=== PATIENT | male | born 1950 | race American Indian/Alaskan Native ===

== ENCOUNTER 2021-04-29 02:41 | Inpatient (IN) | payer MEDICARE ==
[2021-04-29] MEDS ORDERED: SODIUM CHLORIDE 0.9% 1000 ML 1,000 ML IV ONE (02:50)
--- NOTE | 2021-04-29 02:50 | Emergency Department Report ---
ED General Adult HPI - General Stated complaint: HYPOGLYCEMIA Time Seen by Provider: 04/29/21 02:49 Source: patient Mode of arrival: Stretcher Limitations: Altered Mental Status - History of Present Illness Initial comments: 71-year-old -[place] male brought [facility] from [facility], for hypoglycemia, patient had some altered mental status at the [facility], FSBS showed a glucose of 26, he was given D50, glucose improved to over 200s, but was brought to ED for further evaluation because he remained slightly lethargic. Patient also have been coughing, productive of white sputum, but afebrile. Recent history of COVID-19 dx 3 weeks ago per . Patient also started dialysis one week ago. -: Gradual, hour(s) (1) Location: head Radiation: non-radiation Severity scale (0 -10): 0 Consistency: intermittent Improves with: other (D50) Worsens with: none Associated Symptoms: loss of appetite Treatments Prior to Arrival: other (D50) - Related Data Allergies Allergy/AdvReac Type Severity Reaction Status Date / Time No Known Allergies Allergy Verified 04/29/21 03:06 ED Review of Systems ROS: Stated complaint: HYPOGLYCEMIA Other details as noted in HPI Constitutional: weakness. denies: chills, fever Eyes: denies: eye pain, eye discharge, vision change ENT: denies: ear pain, throat pain Respiratory: cough, shortness of breath. denies: wheezing Cardiovascular: denies: chest pain, palpitations Endocrine: no symptoms reported Gastrointestinal: denies: abdominal pain, nausea, diarrhea Genitourinary: denies: urgency, dysuria Musculoskeletal: denies: back pain, joint swelling, arthralgia Skin: denies: rash, lesions Neurological: weakness. denies: headache, paresthesias Psychiatric: denies: anxiety, depression Hematological/Lymphatic: denies: easy bleeding, easy bruising ED Past Medical Hx - Past Medical History Hx Hypertension: Yes - Surgical History Past Surgical History?: No - Family History Family history: hypertension - Social History Smoking Status: Never Smoker Substance Use Type: None ED Physical Exam - General Limitations: No Limitations General appearance: in no apparent distress, anxious, lethargic - Head Head exam: Present: atraumatic, normocephalic - Eye Eye exam: Present: normal appearance - ENT ENT exam: Present: mucous membranes moist - Neck Neck exam: Present: normal inspection - Respiratory Respiratory exam: Present: wheezes, other (Mild wheezing). Absent: respiratory distress - Cardiovascular Cardiovascular Exam: Present: regular rate, normal rhythm. Absent: systolic murmur, diastolic murmur, rubs, gallop - GI/Abdominal GI/Abdominal exam: Present: soft, normal bowel sounds - Rectal Rectal exam: Present: deferred - exam: Present: other (Does have a Keys) - Extremities Exam Extremities exam: Present: normal inspection - Back Exam Back exam: Present: normal inspection - Neurological Exam Neurological exam: Present: alert, oriented X3 - Psychiatric Psychiatric exam: Present: normal affect, normal mood - Skin Skin exam: Present: warm, dry, intact, normal color. Absent: rash ED Course Vital Signs 04/29/21 04/29/21 04/29/21 03:00 03:06 03:13 Temperature 97.9 F Pulse Rate 82 81 Respiratory 14 15 15 Rate Blood Pressure 102/73 102/73 Blood Pressure 102/73 [Left] O2 Sat by Pulse 95 95 Oximetry 04/29/21 04/29/21 04/29/21 03:15 03:16 03:45 Temperature Pulse Rate 78 78 78 Respiratory 18 19 18 Rate Blood Pressure 102/54 115/55 Blood Pressure 102/54 [Left] O2 Sat by Pulse 100 89 91 Oximetry 04/29/21 04/29/21 04/29/21 04:00 04:01 04:15 Temperature Pulse Rate 77 77 75 Respiratory 20 20 18 Rate Blood Pressure 108/63 100/65 Blood Pressure 108/63 [Left] O2 Sat by Pulse 94 94 94 Oximetry 04/29/21 04:31 Temperature Pulse Rate 75 Respiratory 18 Rate Blood Pressure 111/65 Blood Pressure [Left] O2 Sat by Pulse 97 Oximetry ED Medical Decision Making - Lab Data Result diagrams: 04/29/21 03:08 04/29/21 03:08 Critical care attestation.: If time is entered above; I have spent that time in minutes in the direct care of this critically ill patient, excluding procedure time. ED Disposition Clinical Impression: Hypoglycemia, CKD (chronic kidney disease) stage V requiring chronic dialysis Pneumonia Qualifiers: Pneumonia type: aspiration pneumonia Aspiration pneumonia type: due to gastric secretions Laterality: bilateral Lung location: lower lobe of lung Qualified Code(s): J69.0 - Pneumonitis due to inhalation of food and vomit Is pt being admited?: Yes Does the pt Need Aspirin: No Condition: Stable Instructions: Bacterial Pneumonia (ED)
--- NOTE | 2021-04-29 03:24 | XRay Report ---
CHEST 1 VIEW 04/29/2021 2:57 AM INDICATION / CLINICAL INFORMATION: Altered Mental Status. COMPARISON: Dialysis catheter in satisfactory position. FINDINGS: SUPPORT DEVICES: None. HEART / MEDIASTINUM: Heart size normal. Bilateral hilar enlargement. LUNGS / PLEURA: Mild bibasilar opacity. No pneumothorax. ADDITIONAL FINDINGS: No significant additional findings. IMPRESSION: 1. Bilateral hilar enlargement. Comparison with prior studies would BE helpful. 2. Mild bibasilar opacity. Atelectasis versus developing infiltrate. Signer Name: Daniel Sandoval MD Signed: 04/29/2021 3:19 AM Workstation Name: [id number]
[2021-04-29 03:51] LABS: Partial Thromboplastin Time 33.4 Sec. (24.2-36.6)
[2021-04-29 03:53] LABS: Hematocrit 23.8 % (35.5-45.6); Hemoglobin 7.3 gm/dl (11.8-15.2); Mean Corpuscular HGB Conc 31 % (32-34); Mean Corpuscular Volume 88 fl (84-94); Platelet Count 386 K/mm3 (140-440); Red Cell Distribution Width 15.5 % (13.2-15.2)
[2021-04-29] MEDS ORDERED: cefTRIAXone/NS 2 GM/100 ML 2 GM/100 ML BAG IV ONE (04:06)
[2021-04-29] MEDS ORDERED: AZITHROMYCIN/NS 500 MG/250 ML 500 MG/250 ML BAG IV ONE (04:06)
[2021-04-29 04:08] LABS: Albumin 2.7 g/dL (3.9-5); Calcium 6.8 mg/dL (8.4-10.2)
[2021-04-29 04:47] LABS: Chol/HDL Ratio 4.42 %
[2021-04-29 05:03] LABS: Basophils % (Manual) 0 % (0.0-1.8); Eosinophils % (Manual) 0.5 % (0.0-4.3); Nucleated Red Blood Cells 0.5 % (0.0-0.9); Total Cells Counted 200
[2021-04-29 05:04] LABS: Anisocytosis 1+; Platelet Estimate Consistent w Auto
[2021-04-29] MEDS ORDERED: ACETAMINOPHEN 325 MG TAB PO PRN (05:19)
[2021-04-29] MEDS ORDERED: MORPHINE 2 MG/1 ML INJ IV PRN (05:19)
[2021-04-29] MEDS ORDERED: ONDANSETRON 4 MG/2 ML INJ IV PRN (05:19)
[2021-04-29] MEDS ORDERED: ALBUTEROL 2.5 MG/3 ML NEBU IH PRN (05:19)
[2021-04-29] MEDS ORDERED: HYDROmorphone 1 MG/1 ML INJ IV PRN (05:19)
[2021-04-29] MEDS ORDERED: NITROGLYCERIN 0.4 MG TAB SUBL SL PRN (05:21)
--- NOTE | 2021-04-29 05:28 | History and Physical Report ---
History of Present Illness Date of examination: 04/29/21 Date of admission: 04/29/21 Chief complaint: Hypoglycemia History of present illness: 71-year-old -Armenian male with history of hypertension and end-stage renal disease on hemodialysis was brought to the emergency room because of hypoglycemia, patient had some altered mental status at the [facility] living, FSBS showed a glucose of 26, he was given D50, glucose improved to over 200s, but was brought to ED for further evaluation because he remained slightly lethargic. Patient also have been coughing, productive of white sputum, but afebrile. Recent history of COVID-19 dx 3 weeks ago per . Patient also started dialysis one week ago. In the emergency room patient is found to have WBC of 21.0, hemoglobin of 7.3 and hematocrit 23.8, BUN of 101 creatinine 12.8, troponin of 0.206. Chest x-ray shows bilateral hilar enlargement mild bibasilar opacity. Atelectasis versus developing infiltrate. She was going to admit the patient. Case discussed with php architect will hemodialyzed in the morning. We also put the patient on pneumonia pathway Past History Past Medical History: ESRD, hypertension, renal failure Medications and Allergies Allergies Allergy/AdvReac Type Severity Reaction Status Date / Time No Known Allergies Allergy Verified 04/29/21 03:06 Active Meds: Active Medications Sodium Chloride (Nacl 0.9% 1000 Ml) 1,000 mls @ 125 mls/hr IV ONCE ONE Stop: 04/29/21 10:49 Last Admin: 04/29/21 03:27 Dose: 125 mls/hr Review of Systems Constitutional: weakness, malaise, lethargy Cardiovascular: shortness of breath Respiratory: cough, cough with sputum Exam - Constitutional Vitals: Temp Pulse Resp BP Pulse Ox 97.9 F 78 19 102/66 97 04/29/21 03:06 04/29/21 05:00 04/29/21 05:00 04/29/21 05:00 04/29/21 05:00 General appearance: Present: no acute distress, well-nourished - EENT Eyes: Present: PERRL ENT: hearing intact, clear oral mucosa - Neck Neck: Present: supple, normal ROM - Respiratory Respiratory effort: normal Respiratory: bilateral: diminished - Cardiovascular Heart Sounds: Present: S1 & S2. Absent: rub, click - Extremities Extremities: pulses symmetrical, No edema Peripheral Pulses: within normal limits - Abdominal General gastrointestinal: Present: soft, non-tender, non-distended, normal bowel sounds Male genitourinary: Present: normal - Integumentary Integumentary: Present: clear, warm, dry - Musculoskeletal Musculoskeletal: gait normal, strength equal bilaterally - Psychiatric Psychiatric: appropriate mood/affect, intact judgment & insight - Neurologic Neurologic: CNII-XII intact, moves all extremities HEART Score - HEART Score Troponin: Troponin T 0.206 ng/mL (0.00-0.029) H* 04/29/21 03:08 Results - Labs CBC & Chem 7: 04/29/21 03:08 04/29/21 03:08 Labs: Laboratory Last Values WBC 21.0 K/mm3 (4.5-11.0) H 04/29/21 03:08 RBC 2.70 M/mm3 (3.65-5.03) L 04/29/21 03:08 Hgb 7.3 gm/dl (11.8-15.2) L 04/29/21 03:08 Hct 23.8 % (35.5-45.6) L 04/29/21 03:08 MCV 88 fl (84-94) 04/29/21 03:08 MCH 27 pg (28-32) L 04/29/21 03:08 MCHC 31 % (32-34) L 04/29/21 03:08 RDW 15.5 % (13.2-15.2) H 04/29/21 03:08 Plt Count 386 K/mm3 (140-440) 04/29/21 03:08 Add Manual Diff Complete 04/29/21 03:08 Total Counted 200 04/29/21 03:08 Seg Neuts % (Manual) 87.5 % (40.0-70.0) H 04/29/21 03:08 Band Neutrophils % 0 % 04/29/21 03:08 Lymphocytes % (Manual) 4.0 % (13.4-35.0) L 04/29/21 03:08 Reactive Lymphs % (Man) 0 % 04/29/21 03:08 Monocytes % (Manual) 8.0 % (0.0-7.3) H 04/29/21 03:08 Eosinophils % (Manual) 0.5 % (0.0-4.3) 04/29/21 03:08 Basophils % (Manual) 0 % (0.0-1.8) 04/29/21 03:08 Metamyelocytes % 0 % 04/29/21 03:08 Myelocytes % 0 % 04/29/21 03:08 Promyelocytes % 0 % 04/29/21 03:08 Blast Cells % 0 % 04/29/21 03:08 Nucleated RBC % 0.5 % (0.0-0.9) 04/29/21 03:08 Seg Neutrophils # Man 18.4 K/mm3 (1.8-7.7) H 04/29/21 03:08 Band Neutrophils # 0.0 K/mm3 04/29/21 03:08 Lymphocytes # (Manual) 0.8 K/mm3 (1.2-5.4) L 04/29/21 03:08 Abs React Lymphs (Man) 0.0 K/mm3 04/29/21 03:08 Monocytes # (Manual) 1.7 K/mm3 (0.0-0.8) H 04/29/21 03:08 Eosinophils # (Manual) 0.1 K/mm3 (0.0-0.4) 04/29/21 03:08 Basophils # (Manual) 0.0 K/mm3 (0.0-0.1) 04/29/21 03:08 Metamyelocytes # 0.0 K/mm3 04/29/21 03:08 Myelocytes # 0.0 K/mm3 04/29/21 03:08 Promyelocytes # 0.0 K/mm3 04/29/21 03:08 Blast Cells # 0.0 K/mm3 04/29/21 03:08 WBC Morphology Not Reportable 04/29/21 03:08 Hypersegmented Neuts Not Reportable 04/29/21 03:08 Hyposegmented Neuts Not Reportable 04/29/21 03:08 Hypogranular Neuts Not Reportable 04/29/21 03:08 Smudge Cells Not Reportable 04/29/21 03:08 Toxic Granulation Not Reportable 04/29/21 03:08 Toxic Vacuolation Not Reportable 04/29/21 03:08 Dohle Bodies Not Reportable 04/29/21 03:08 Pelger-Huet Anomaly Not Reportable 04/29/21 03:08 Brooke Rods Not Reportable 04/29/21 03:08 Platelet Estimate Consistent w auto 04/29/21 03:08 Clumped Platelets Not Reportable 04/29/21 03:08 Plt Clumps, EDTA Not Reportable 04/29/21 03:08 Large Platelets Not Reportable 04/29/21 03:08 Giant Platelets Not Reportable 04/29/21 03:08 Platelet Satelliting Not Reportable 04/29/21 03:08 Plt Morphology Comment Not Reportable 04/29/21 03:08 RBC Morphology Not Reportable 04/29/21 03:08 Dimorphic RBCs Not Reportable 04/29/21 03:08 Polychromasia Not Reportable 04/29/21 03:08 Hypochromasia Not Reportable 04/29/21 03:08 Poikilocytosis Not Reportable 04/29/21 03:08 Anisocytosis 1+ 04/29/21 03:08 Microcytosis Not Reportable 04/29/21 03:08 Macrocytosis Not Reportable 04/29/21 03:08 Spherocytes Not Reportable 04/29/21 03:08 Pappenheimer Bodies Not Reportable 04/29/21 03:08 Sickle Cells Not Reportable 04/29/21 03:08 Target Cells Not Reportable 04/29/21 03:08 Tear Drop Cells Not Reportable 04/29/21 03:08 Ovalocytes Not Reportable 04/29/21 03:08 Helmet Cells Not Reportable 04/29/21 03:08 [place] Bodies Not Reportable 04/29/21 03:08 [place] Rings Not Reportable 04/29/21 03:08 [place] Cells Not Reportable 04/29/21 03:08 Bite Cells Not Reportable 04/29/21 03:08 Crenated Cell Not Reportable 04/29/21 03:08 Elliptocytes Not Reportable 04/29/21 03:08 Acanthocytes (Spur) Not Reportable 04/29/21 03:08 Rouleaux Not Reportable 04/29/21 03:08 Hemoglobin C Crystals Not Reportable 04/29/21 03:08 Schistocytes Not Reportable 04/29/21 03:08 Malaria parasites Not Reportable 04/29/21 03:08 Manfred Bodies Not Reportable 04/29/21 03:08 Hem Pathologist Commnt No 04/29/21 03:08 PT 14.3 Sec. (12.2-14.9) 04/29/21 03:08 INR 1.00 (0.87-1.13) 04/29/21 03:08 APTT 33.4 Sec. (24.2-36.6) 04/29/21 03:08 Sodium 136 mmol/L (137-145) L 04/29/21 03:08 Potassium 4.2 mmol/L (3.6-5.0) 04/29/21 03:08 Chloride 94.2 mmol/L (98-107) L 04/29/21 03:08 Carbon Dioxide 19 mmol/L (22-30) L 04/29/21 03:08 Anion Gap 27 mmol/L 04/29/21 03:08 BUN 101 mg/dL (9-20) H 04/29/21 03:08 Creatinine 12.8 mg/dL (0.8-1.3) H 04/29/21 03:08 Estimated GFR 5 ml/min 04/29/21 03:08 BUN/Creatinine Ratio 8 % 04/29/21 03:08 Glucose 200 mg/dL (75-100) H 04/29/21 03:08 POC Glucose 154 mg/dL (70-105) H 04/29/21 02:55 Lactic Acid 1.00 mmol/L (0.7-2.0) 04/29/21 03:08 Calcium 6.8 mg/dL (8.4-10.2) L 04/29/21 03:08 Total Bilirubin 0.20 mg/dL (0.1-1.2) 04/29/21 03:08 AST 26 units/L (5-40) 04/29/21 03:08 ALT 12 units/L (7-56) 04/29/21 03:08 Alkaline Phosphatase 121 units/L (35-129) 04/29/21 03:08 Total Creatine Kinase 101 units/L (55-170) 04/29/21 03:08 Troponin T 0.206 ng/mL (0.00-0.029) H* 04/29/21 03:08 Total Protein 6.3 g/dL (6.3-8.2) 04/29/21 03:08 Albumin 2.7 g/dL (3.9-5) L 04/29/21 03:08 Albumin/Globulin Ratio 0.8 % 04/29/21 03:08 Triglycerides 222 mg/dL (2-149) H 04/29/21 03:08 Cholesterol 186 mg/dL (50-199) 04/29/21 03:08 LDL Cholesterol Direct 82 mg/dL (50-130) 04/29/21 03:08 HDL Cholesterol 42 mg/dL (40-59) 04/29/21 03:08 Cholesterol/HDL Ratio 4.42 % 04/29/21 03:08 - Imaging and Cardiology Chest x-ray: report reviewed Assessment and Plan VTE prophylaxis?: Chemical Plan of care discussed with patient/family: Yes - Patient Problems (1) CKD (chronic kidney disease) stage V requiring chronic dialysis Current Visit: Yes Status: Acute Plan to address problem: Admit the patient to the medical telemetry. Cardiac diet. We consulted nephrology for hemodialysis in the morning. Recheck BMP in the morning (2) Pneumonia Current Visit: Yes Status: Acute Qualifiers: Pneumonia type: aspiration pneumonia Aspiration pneumonia type: due to gastric secretions Laterality: bilateral Lung location: lower lobe of lung Qualified Code(s): J69.0 - Pneumonitis due to inhalation of food and vomit Plan to address problem: Oxygen via nasal cannula 3 L/min. Rocephin 2 g IV daily. Zithromax 500 mg IV daily. Blood culture and sputum culture. Recheck CBC in the morning (3) Elevated troponin Current Visit: Yes Status: Acute Plan to address problem: Aspirin 325 mg p.o. daily. Lipitor 40 mg p.o. daily. Serial cardiac enzymes. Echocardiogram. Consult cardiology if needed (4) Hypertension Current Visit: Yes Status: Acute Plan to address problem: Hydralazine 10 mg IV every 6 hours as needed. We will monitor the blood pressure closely (5) Hypoglycemia Current Visit: Yes Status: Acute Plan to address problem: Put the patient on cardiac diet. We will monitor the blood glucose closely. We put the patient on hypoglycemia protocol (6) DVT prophylaxis Current Visit: Yes Status: Acute Plan to address problem: Heparin 5000 units subcu every 12 hours for DVT prophylaxis. Pepcid 20 mg p.o. twice daily for GI prophylaxis. Patient is a full code
[2021-04-29] MEDS ORDERED: SODIUM CHLORIDE 0.9% 100 ML IV PRN (08:16)
--- NOTE | 2021-04-29 08:16 | Event Note ---
Date: 04/29/21 Patient need urgent HD. Unable to get HD 2/2 AMS.
[2021-04-29] MEDS: IPRATROPIUM/ALBUTEROL SULFATE 3 ML AMPUL.NEB IH SCH ×3 (08:40→20:28)
[2021-04-29] MEDS ORDERED: DEXTROSE 10% *Hypoglycemia IV ONE (09:29)
[2021-04-29] MEDS ORDERED: FAMOTIDINE 20 MG TAB PO SCH (10:00)
[2021-04-29] MEDS: HEPARIN 5,000 UNIT/1 ML VIAL SUB-Q SCH ×2 (10:30→22:00)
[2021-04-29] MEDS: HEPARIN 10,000 UNITS/10 ML VIAL IV PRN (11:41)
[2021-04-29] MEDS: EPOETIN ALFA-EPBX 20,000 UNIT/1 ML VIAL SUB-Q PRN (11:42)
[2021-04-29] MEDS ORDERED: DEXTROSE 10% *Hypoglycemia IV PRN (11:50)
[2021-04-29 12:52] LABS: Hepatitis B Surface Antigen Non-Reactive (Negative); Hepatitis C Virus Antibody Non-Reactive (NonReactive)
--- NOTE | 2021-04-29 14:42 | Event Note ---
Date: 04/29/21 I have seen and examined the patient at the bedside, patient's chart medication list tests and procedures reviewed . 69-year-old -Burkin[place] male patient a care home resident Was admitted this morning through emergency room with hypoglycemia, toxic metabolic encephalopathy patient's blood sugars were 26.. Today patient sugars are little improved, diabetic medications were held, receiving hemodialysis today Patient medical records reviewed continue current management Follow pre sales technical consultant recommendations
--- NOTE | 2021-04-29 14:44 | Consultation ---
History of Present Illness - Reason for Consult Consult date: 04/29/21 end stage renal disease - History of Present Illness The patient is a 71 YO male known to our service with history of DM-2, Hypertension, Anemia, ESRD on HD, Encephalopathy and recent Covid-19 infection who presented to [facility] ED from [facility] 04/29 because of hypoglycemia. Patient was not able to provide any history and there was no family member at the bedside. FSBS at [facility] showed a glucose of 26, he was given D50, glucose improved to over 200s, but was brought to ED for further evaluation because he remained slightly lethargic. Patient had been coughing, productive of white sputum, but afebrile. In the ED patient was found to have WBC of 21, Hemoglobin 7.3, Hematocrit 23.8, BUN of 101 creatinine 12.8, troponin of 0.206. Chest X-ray showed bilateral hilar enlargement mild bibasilar opacity, Atelectasis versus developing infiltrate. Patient was admitted for further evaluation. Nephrology was consulted for further evaluation and treatment of SAMI. Past History Past Medical History: ESRD, hypertension, renal failure Medications and Allergies Allergies Allergy/AdvReac Type Severity Reaction Status Date / Time No Known Allergies Allergy Verified 04/29/21 03:06 Home Medications Medication Instructions Recorded Confirmed Last Taken Type Hydrochlorothiazide 25 mg PO QDAY 04/29/21 04/29/21 Unknown History Iron 325 mg PO QDAY 04/29/21 04/29/21 Unknown History Lasix 80 mg PO BID 04/29/21 04/29/21 Unknown History Lipitor 20 mg PO HS 04/29/21 04/29/21 Unknown History Protonix 40 mg PO QDAY 04/29/21 04/29/21 Unknown History Sotalol 80 mg PO BID 04/29/21 04/29/21 Unknown History amLODIPine 10 mg PO QDAY 04/29/21 04/29/21 Unknown History cloNIDine 0.3 mg PO TID 04/29/21 04/29/21 Unknown History hydrALAZINE [Apresoline TAB] 100 mg PO TID 04/29/21 04/29/21 Unknown History Active Meds: Active Medications Acetaminophen (Acetaminophen 325 Mg Tab) 650 mg PO Q4H PRN PRN Reason: Pain MILD(1-3)/Fever >100.5/GARCIA Albuterol (Albuterol 2.5 Mg/3 Ml Nebu) 2.5 mg IH Q3HRT PRN PRN Reason: Shortness Of Breath Albuterol/Ipratropium (Ipratropium/Albuterol Sulfate 3 Ml Ampul.Neb) 1 ampul IH Q6HRT [facility] Last Admin: 04/29/21 08:40 Dose: Not Given Aspirin (Aspirin Ec 325 Mg Tab) 325 mg PO QDAY [facility] Atorvastatin Calcium (Atorvastatin 40 Mg Tab) 40 mg PO QHS [facility] Azithromycin (Azithromycin 250 Mg Tab) 500 mg PO QDAY [facility]; Protocol Dextrose (Dextrose 10% *Hypoglycemia) 0 ml IV PRN PRN PRN Reason: Hypoglycemia Epoetin Cody-epbx (Epoetin Cody-Epbx 20,000 Unit/1 Ml Vial) 20,000 unit SUB-Q FLORA PRN PRN Reason: hemodialysis Last Admin: 04/29/21 11:42 Dose: 20,000 unit Famotidine (Famotidine 10 Mg Tab) 10 mg PO BID [facility] Heparin Sodium (Porcine) (Heparin 5,000 Unit/1 Ml Vial) 5,000 unit SUB-Q Q12HR [facility] Last Admin: 04/29/21 10:30 Dose: 5,000 unit Heparin Sodium (Porcine) (Heparin 10,000 Units/10 Ml Vial) 3,000 unit IV FLORA PRN PRN Reason: hemodialysis Last Admin: 04/29/21 11:41 Dose: 3,000 unit Hydromorphone HCl (Hydromorphone 1 Mg/1 Ml Inj) 0.5 mg IV Q3H PRN PRN Reason: Pain , Severe (7-10) Ceftriaxone Sodium (Rocephin/Ns 2 Gm/100 Ml) 2 gm in 100 mls @ 200 mls/hr IV Q24H [facility]; Protocol Sodium Chloride (Nacl 0.9%) 100 mls @ 999 mls/hr IV FLORA PRN PRN Reason: Hypotension Morphine Sulfate (Morphine 2 Mg/1 Ml Inj) 2 mg IV Q4H PRN PRN Reason: Pain, Moderate (4-6) Nitroglycerin (Nitroglycerin 0.4 Mg Tab Subl) 0.4 mg SL Q5M PRN PRN Reason: Chest Pain Ondansetron HCl (Ondansetron 4 Mg/2 Ml Inj) 4 mg IV Q8H PRN PRN Reason: Nausea And Vomiting Sodium Chloride (Sodium Chloride 0.9% 10 Ml Flush Syringe) 10 ml IV BID JOSUE Last Admin: 04/29/21 10:30 Dose: 10 ml Sodium Chloride (Sodium Chloride 0.9% 10 Ml Flush Syringe) 10 ml IV PRN PRN PRN Reason: LINE FLUSH Exam - Vital Signs Vital signs: Vital Signs Pulse Resp BP 82 14 102/73 04/29/21 03:00 04/29/21 03:00 04/29/21 03:00 Results - Lab Results 04/30/21 05:45 04/30/21 05:45 Most recent lab results Calcium 6.8 mg/dL (8.4-10.2) L 04/29/21 03:08 Assessment and Plan 1. ESRD: Patient was recently started on HD during the prior admission at [facility]. He was last dialyzed on 04/24 at [facility]. He refused scheduled HD on 04/27 at the rehab center. Admitted with volume overload and metabolic acidosis. Hemodialysis: 04/29. 2. FEN: Metabolic acidosis, HD today, monitor. Volume control, UF with HD as tolerated. Monitor lytes and volume status. 3. Acute hypoxic resp failure, POA: 2/2 volume overload / pulmonary edema / PNA. On VM and NC O2 at the time of evaluation. Monitor. 4. PNA, POA: Abx to cover CAP. Covid-19 test ordered. Follow cultures. 5. DM-2: Admitted with hypoglycemia. Monitor. 6. Normocytic Anemia, POA: Chronic. Epogen. Monitor. 7. Hypertension: Volume control. Continue home BP meds. Monitor BP. Subjective: Patient was seen and examined at the bedside. Examination: General appearance: well-developed, appears stated age, slight resp distress, on VM and NC O2 HEENT: atraumatic, CHRISTIANO Neck: trachea midline Respiratory: rales heard Heart: S1S2, regular, no murmur Abdomen: soft, bowel sounds heard, NT Integumentary: no obvious rash Neurologic: somnolent, able to move extremities Ext: edema Hemodialysis access: R IJ tunnel catheter
[2021-04-29] MEDS: FAMOTIDINE 10 MG TAB PO SCH ×2 (15:55→22:00)
--- NOTE | 2021-04-29 15:55 | Progress Note ---
Assessment and Plan Assessment and plan: Discussed with nephrology Dr. Barrera, patient was severely hypoxemic during dialysis requiring Ventimask. Patient is already receiving nebulizer treatments, work-up is consistent with possible pneumonia on chest x-ray Leukocytosis and low-grade fever. Patient is already on empiric antibiotics Rocephin and Zithromax --ESRD on hemodialysis Current Visit: Yes Status: Acute Nephrology following Hemodialysis per schedule, monitor renal function Avoid nephrotoxin, renal dosing of medications -- Pneumonia community-acquired Current Visit: Yes Status: Acute Oxygen via nasal cannula 3 L/min. Titrate O2 sats to more than 90% Empiric antibiotics Rocephin 2 g IV daily. Zithromax 500 mg IV daily. Blood culture and sputum culture. --Elevated troponin/non-ST elevation [place] type II Current Visit: Yes Status: Acute Aspirin 325 mg p.o. daily. Lipitor 40 mg p.o. daily. Serial cardiac enzymes. Echocardiogram. Consult cardiology if needed --Hypertension Current Visit: Yes Status: Acute Hydralazine 10 mg IV every 6 hours as needed. We will monitor the blood pressure closely --Hypoglycemia Current Visit: Yes Status: Acute D50/D10 to treat hypoglycemia. Hold diabetic medications, closely monitor blood sugars, sliding scale coverage ADA diet and insulin --DVT prophylaxis Current Visit: Yes Status: Acute Heparin 5000 units subcu every 12 hours for DVT prophylaxis. Pepcid 20 mg p.o. twice daily for GI prophylaxis. Patient is a full code Monitor patient and adjust the management as needed Plan of care reviewed with the patient and his nurse Home O2 evaluation prior to discharge Plan of care reviewed with patient and his nurse 04/29; patient received hemodialysis today, during the dialysis time Patient went to hypoxic respiratory failure, placed on Ventimask, currently saturating well History Interval history: I have seen and examined the patient at the bedside this morning Patient's chart and medications reviewed Patient was admitted with worsening shortness of breath and hypoglycemia Blood sugars are reasonable level, scheduled for hemodialysis Hypoglycemic respiratory failure Vital signs noted Hospitalist Physical - Constitutional Vitals: Temp Pulse Resp BP Pulse Ox 100.8 F H 98 H 18 132/67 96 04/29/21 10:50 04/29/21 12:48 04/29/21 12:48 04/29/21 11:15 04/29/21 12:48 General appearance: Present: no acute distress, well-nourished - EENT Eyes: Present: PERRL, EOM intact - Neck Neck: Present: supple, normal ROM - Respiratory Respiratory effort: normal Respiratory: bilateral: diminished, rhonchi, negative: rales, wheezing - Cardiovascular Rhythm: regular Heart Sounds: Present: S1 & S2 - Extremities Extremities: no ischemia, No edema - Abdominal General gastrointestinal: soft, non-tender, non-distended, normal bowel sounds - Integumentary Integumentary: Present: clear, warm - Psychiatric Psychiatric: appropriate mood/affect, cooperative - Neurologic Neurologic: CNII-XII intact, moves all extremities HEART Score - HEART Score Troponin: Troponin T 0.167 ng/mL (0.00-0.029) H* 04/29/21 10:29 Results - Labs CBC & Chem 7: 04/29/21 03:08 04/29/21 10:29 Labs: Laboratory Last Values WBC 21.0 K/mm3 (4.5-11.0) H 04/29/21 03:08 RBC 2.70 M/mm3 (3.65-5.03) L 04/29/21 03:08 Hgb 7.3 gm/dl (11.8-15.2) L 04/29/21 03:08 Hct 23.8 % (35.5-45.6) L 04/29/21 03:08 MCV 88 fl (84-94) 04/29/21 03:08 MCH 27 pg (28-32) L 04/29/21 03:08 MCHC 31 % (32-34) L 04/29/21 03:08 RDW 15.5 % (13.2-15.2) H 04/29/21 03:08 Plt Count 386 K/mm3 (140-440) 04/29/21 03:08 Add Manual Diff Complete 04/29/21 03:08 Total Counted 200 04/29/21 03:08 Seg Neuts % (Manual) 87.5 % (40.0-70.0) H 04/29/21 03:08 Band Neutrophils % 0 % 04/29/21 03:08 Lymphocytes % (Manual) 4.0 % (13.4-35.0) L 04/29/21 03:08 Reactive Lymphs % (Man) 0 % 04/29/21 03:08 Monocytes % (Manual) 8.0 % (0.0-7.3) H 04/29/21 03:08 Eosinophils % (Manual) 0.5 % (0.0-4.3) 04/29/21 03:08 Basophils % (Manual) 0 % (0.0-1.8) 04/29/21 03:08 Metamyelocytes % 0 % 04/29/21 03:08 Myelocytes % 0 % 04/29/21 03:08 Promyelocytes % 0 % 04/29/21 03:08 Blast Cells % 0 % 04/29/21 03:08 Nucleated RBC % 0.5 % (0.0-0.9) 04/29/21 03:08 Seg Neutrophils # Man 18.4 K/mm3 (1.8-7.7) H 04/29/21 03:08 Band Neutrophils # 0.0 K/mm3 04/29/21 03:08 Lymphocytes # (Manual) 0.8 K/mm3 (1.2-5.4) L 04/29/21 03:08 Abs React Lymphs (Man) 0.0 K/mm3 04/29/21 03:08 Monocytes # (Manual) 1.7 K/mm3 (0.0-0.8) H 04/29/21 03:08 Eosinophils # (Manual) 0.1 K/mm3 (0.0-0.4) 04/29/21 03:08 Basophils # (Manual) 0.0 K/mm3 (0.0-0.1) 04/29/21 03:08 Metamyelocytes # 0.0 K/mm3 04/29/21 03:08 Myelocytes # 0.0 K/mm3 04/29/21 03:08 Promyelocytes # 0.0 K/mm3 04/29/21 03:08 Blast Cells # 0.0 K/mm3 04/29/21 03:08 WBC Morphology Not Reportable 04/29/21 03:08 Hypersegmented Neuts Not Reportable 04/29/21 03:08 Hyposegmented Neuts Not Reportable 04/29/21 03:08 Hypogranular Neuts Not Reportable 04/29/21 03:08 Smudge Cells Not Reportable 04/29/21 03:08 Toxic Granulation Not Reportable 04/29/21 03:08 Toxic Vacuolation Not Reportable 04/29/21 03:08 Dohle Bodies Not Reportable 04/29/21 03:08 Pelger-Huet Anomaly Not Reportable 04/29/21 03:08 Brooke Rods Not Reportable 04/29/21 03:08 Platelet Estimate Consistent w auto 04/29/21 03:08 Clumped Platelets Not Reportable 04/29/21 03:08 Plt Clumps, EDTA Not Reportable 04/29/21 03:08 Large Platelets Not Reportable 04/29/21 03:08 Giant Platelets Not Reportable 04/29/21 03:08 Platelet Satelliting Not Reportable 04/29/21 03:08 Plt Morphology Comment Not Reportable 04/29/21 03:08 RBC Morphology Not Reportable 04/29/21 03:08 Dimorphic RBCs Not Reportable 04/29/21 03:08 Polychromasia Not Reportable 04/29/21 03:08 Hypochromasia Not Reportable 04/29/21 03:08 Poikilocytosis Not Reportable 04/29/21 03:08 Anisocytosis 1+ 04/29/21 03:08 Microcytosis Not Reportable 04/29/21 03:08 Macrocytosis Not Reportable 04/29/21 03:08 Spherocytes Not Reportable 04/29/21 03:08 Pappenheimer Bodies Not Reportable 04/29/21 03:08 Sickle Cells Not Reportable 04/29/21 03:08 Target Cells Not Reportable 04/29/21 03:08 Tear Drop Cells Not Reportable 04/29/21 03:08 Ovalocytes Not Reportable 04/29/21 03:08 Helmet Cells Not Reportable 04/29/21 03:08 Henderson-Redmon Bodies Not Reportable 04/29/21 03:08 [place] Rings Not Reportable 04/29/21 03:08 Rina Cells Not Reportable 04/29/21 03:08 Bite Cells Not Reportable 04/29/21 03:08 Crenated Cell Not Reportable 04/29/21 03:08 Elliptocytes Not Reportable 04/29/21 03:08 Acanthocytes (Spur) Not Reportable 04/29/21 03:08 Rouleaux Not Reportable 04/29/21 03:08 Hemoglobin C Crystals Not Reportable 04/29/21 03:08 Schistocytes Not Reportable 04/29/21 03:08 Malaria parasites Not Reportable 04/29/21 03:08 Manfred Bodies Not Reportable 04/29/21 03:08 Hem Pathologist Commnt No 04/29/21 03:08 PT 14.3 Sec. (12.2-14.9) 04/29/21 03:08 INR 1.00 (0.87-1.13) 04/29/21 03:08 APTT 33.4 Sec. (24.2-36.6) 04/29/21 03:08 Sodium 136 mmol/L (137-145) L 04/29/21 03:08 Potassium 4.2 mmol/L (3.6-5.0) 04/29/21 03:08 Chloride 94.2 mmol/L (98-107) L 04/29/21 03:08 Carbon Dioxide 19 mmol/L (22-30) L 04/29/21 03:08 Anion Gap 27 mmol/L 04/29/21 03:08 BUN 101 mg/dL (9-20) H 04/29/21 03:08 Creatinine 12.8 mg/dL (0.8-1.3) H 04/29/21 03:08 Estimated GFR 5 ml/min 04/29/21 03:08 BUN/Creatinine Ratio 8 % 04/29/21 03:08 Glucose 105 mg/dL (75-100) H 04/29/21 10:29 POC Glucose 117 mg/dL (70-105) H 04/29/21 14:26 Lactic Acid 1.00 mmol/L (0.7-2.0) 04/29/21 03:08 Calcium 6.8 mg/dL (8.4-10.2) L 04/29/21 03:08 Total Bilirubin 0.20 mg/dL (0.1-1.2) 04/29/21 03:08 AST 26 units/L (5-40) 04/29/21 03:08 ALT 12 units/L (7-56) 04/29/21 03:08 Alkaline Phosphatase 121 units/L (35-129) 04/29/21 03:08 Total Creatine Kinase 101 units/L (55-170) 04/29/21 03:08 Troponin T 0.167 ng/mL (0.00-0.029) H* 04/29/21 10:29 Total Protein 6.3 g/dL (6.3-8.2) 04/29/21 03:08 Albumin 2.7 g/dL (3.9-5) L 04/29/21 03:08 Albumin/Globulin Ratio 0.8 % 04/29/21 03:08 Triglycerides 222 mg/dL (2-149) H 04/29/21 03:08 Cholesterol 186 mg/dL (50-199) 04/29/21 03:08 LDL Cholesterol Direct 82 mg/dL (50-130) 04/29/21 03:08 HDL Cholesterol 42 mg/dL (40-59) 04/29/21 03:08 Cholesterol/HDL Ratio 4.42 % 04/29/21 03:08 Hepatitis A IgM Ab Non-reactive (NonReactive) 04/29/21 10:29 Hep Bs Antigen Non-reactive (Negative) 04/29/21 10:29 Hep B Core IgM Ab Non-reactive (NonReactive) 04/29/21 10:29 Hepatitis C Antibody Non-reactive (NonReactive) 04/29/21 10:29 Microbiology: Microbiology 04/29/21 03:57 Peripheral/Venous Blood Culture - Preliminary Culture in Progress 04/29/21 03:08 Peripheral/Venous Blood Culture - Preliminary Culture in Progress Keys/IV: Voiding Method Indwelling Catheter Active Medications - Current Medications Current Medications: Generic Name Dose Route Start Last Admin Trade Name Freq PRN Reason Stop Dose Admin Acetaminophen 650 mg 04/29/21 05:19 Acetaminophen 325 Mg Tab PO Q4H PRN Pain MILD(1-3)/Fever >100.5/GARCIA Albuterol 2.5 mg 04/29/21 05:19 Albuterol 2.5 Mg/3 Ml Nebu IH Q3HRT PRN Shortness Of Breath Albuterol/Ipratropium 1 ampul 04/29/21 08:00 04/29/21 08:40 Ipratropium/Albuterol Sulfate 3 Ml Ampul.Neb IH Not Given Q6HRT [facility] Aspirin 325 mg 04/30/21 10:00 Aspirin Ec 325 Mg Tab PO QDAY [facility] Atorvastatin Calcium 40 mg 04/29/21 22:00 Atorvastatin 40 Mg Tab PO QHS [facility] Azithromycin 500 mg 04/30/21 10:00 Azithromycin 250 Mg Tab PO QDAY [facility] Protocol Dextrose 0 ml 04/29/21 11:50 Dextrose 10% *Hypoglycemia IV PRN PRN Hypoglycemia Epoetin Cody-epbx 20,000 unit 04/29/21 08:16 04/29/21 11:42 Epoetin Cody-Epbx 20,000 Unit/1 Ml Vial SUB-Q 20,000 unit FLORA PRN Administration hemodialysis Famotidine 10 mg 04/29/21 10:00 Famotidine 10 Mg Tab PO BID JOSUE Heparin Sodium (Porcine) 5,000 unit 04/29/21 10:00 04/29/21 10:30 Heparin 5,000 Unit/1 Ml Vial SUB-Q 5,000 unit Q12HR JOSUE Administration Heparin Sodium (Porcine) 3,000 unit 04/29/21 08:16 04/29/21 11:41 Heparin 10,000 Units/10 Ml Vial IV 3,000 unit FLORA PRN Administration hemodialysis Hydromorphone HCl 0.5 mg 04/29/21 05:19 Hydromorphone 1 Mg/1 Ml Inj IV Q3H PRN Pain , Severe (7-10) Ceftriaxone Sodium 2 gm in 100 mls @ 200 mls/hr 04/30/21 06:00 Rocephin/Ns 2 Gm/100 Ml IV Q24H [facility] Protocol Sodium Chloride 100 mls @ 999 mls/hr 04/29/21 08:16 Nacl 0.9% IV FLORA PRN Hypotension Calcium Gluconate 2,000 mg/ 120 mls @ 660 mls/hr 04/29/21 16:00 Sodium Chloride IV 04/29/21 16:10 ONCE ONE Morphine Sulfate 2 mg 04/29/21 05:19 Morphine 2 Mg/1 Ml Inj IV Q4H PRN Pain, Moderate (4-6) Nitroglycerin 0.4 mg 04/29/21 05:21 Nitroglycerin 0.4 Mg Tab Subl SL Q5M PRN Chest Pain Ondansetron HCl 4 mg 04/29/21 05:19 Ondansetron 4 Mg/2 Ml Inj IV Q8H PRN Nausea And Vomiting Sodium Chloride 10 ml 04/29/21 10:00 04/29/21 10:30 Sodium Chloride 0.9% 10 Ml Flush Syringe IV 10 ml BID JOSUE Administration Sodium Chloride 10 ml 04/29/21 05:19 Sodium Chloride 0.9% 10 Ml Flush Syringe IV PRN PRN LINE FLUSH
[2021-04-29] MEDS ORDERED: CALCIUM GLUCONATE 2,000 MG in SODIUM CHLORIDE 0.9% 100 ML IV ONE (16:00)
[2021-04-29 17:22] LABS: ABG Base Excess -0.2 mmol/L (-2.0-3.0); ABG HCO3 23.5 mmol/L (20.0-26.0); ABG Methemoglobin 0.5 % (0.0-1.5); ABG PH 7.458 pH Units (7.350-7.450); ABG PO2 69.5 mm Hg (80.0-90.0)
[2021-04-29] MEDS ORDERED: LIPITOR 10 MG PO SCH (22:00)
[2021-04-30] MEDS: IPRATROPIUM/ALBUTEROL SULFATE 3 ML AMPUL.NEB IH SCH ×3 (01:59→15:50)
[2021-04-30] MEDS: cefTRIAXone/NS 2 GM/100 ML 2 GM/100 ML BAG IV SCH (05:49)
[2021-04-30 06:27] LABS: Hematocrit 21.1 % (35.5-45.6); Hemoglobin 6.6 gm/dl (11.8-15.2); Mean Corpuscular HGB Conc 31 % (32-34); Mean Corpuscular Volume 88 fl (84-94); Platelet Count 358 K/mm3 (140-440); Red Cell Distribution Width 16.5 % (13.2-15.2)
[2021-04-30 06:43] LABS: Calcium 7.2 mg/dL (8.4-10.2)
[2021-04-30 07:57] LABS: Anisocytosis 1+; Large Platelets Few; Platelet Estimate Consistent w Auto; Total Cells Counted 100; Toxic Granulation 1+
[2021-04-30] MEDS: HEPARIN 5,000 UNIT/1 ML VIAL SUB-Q SCH ×2 (09:57→21:52)
[2021-04-30] MEDS: ASPIRIN EC 325 MG TAB PO SCH (09:57)
[2021-04-30] MEDS: FAMOTIDINE 10 MG TAB PO SCH ×2 (09:57→21:51)
[2021-04-30] MEDS: AZITHROMYCIN 250 MG TAB PO SCH (09:57)
--- NOTE | 2021-04-30 10:45 | Electrocardiograph Report ---
[facility] Test Date: 2021-04-29 Test Time: 04:51:38 Pat Name: JACINTO LAYOTN Department: Room: A472 Gender: M Half Section Ironer: VALENTINO : 1950 Requested By: TIFFANY ALVARADO Order Number: [id number] Reading MD: Akhil Baez Measurements Intervals [place] Rate: 79 P: 63 ID: [id number] QRS: -71 QRSD: 165 T: 89 QT: 498 QTc: 571 Interpretive Statements Sinus rhythm RBBB and LAFB Probable left ventricular hypertrophy No previous ECG available for comparison Electronically Signed On 04-30-2021 10:45:12 EDT by Akhil Baez
[2021-04-30] MEDS ORDERED: SODIUM CHLORIDE 0.9% 500 ML 500 ML IV ONE (11:43)
--- NOTE | 2021-04-30 11:43 | Progress Note ---
Assessment and Plan Assessment and plan: Sepsis due to community-acquired pneumonia: Current Visit: Yes Status: Acute Leukocytosis, fever, tachycardia, infiltrate on chest x-ray Follow blood cultures, continue empiric Rocephin and Zithromax Oxygen titrate O2 sats to more than 90% Blood pressures in the lower range; If no improvement, may consider transfer to ICU/IMCU for close observation To start pressors as needed Discussed with nephrology Dr. Barrera, patient was severely hypoxemic during dialysis requiring Ventimask. Patient is already receiving nebulizer treatments, work-up is consistent with possible pneumonia on chest x-ray Leukocytosis and low-grade fever. Patient is already on empiric antibiotics Rocephin and Zithromax --ESRD on hemodialysis Current Visit: Yes Status: Chronic Nephrology following Hemodialysis per schedule, monitor renal function Avoid nephrotoxin, renal dosing of medications --Anemia: Hemoglobin 6.6 Type and screen, transfuse 1 unit of PRBC at that day Hemodialysis tomorrow Closely monitor H&H and transfuse additional PRBC as needed - Pneumonia community-acquired Current Visit: Yes Status: Acute Oxygen via nasal cannula 3 L/min. Titrate O2 sats to more than 90% Empiric antibiotics Rocephin 2 g IV daily. Zithromax 500 mg IV daily. Blood culture and sputum culture. --Elevated troponin/non-ST elevation VT type II Current Visit: Yes Status: Acute Aspirin 325 mg p.o. daily. Lipitor 40 mg p.o. daily. Serial cardiac enzymes. Echocardiogram. Consult cardiology if needed --Hypertension Current Visit: Yes Status: Acute Hydralazine 10 mg IV every 6 hours as needed. We will monitor the blood pressure closely --Hypoglycemia Current Visit: Yes Status: Acute D50/D10 to treat hypoglycemia. Hold diabetic medications, closely monitor blood sugars, sliding scale coverage ADA diet and insulin --DVT prophylaxis--advance care planning Current Visit: Yes Status: Acute Heparin 5000 units subcu every 12 hours for DVT prophylaxis. Pepcid 20 mg p.o. twice daily for GI prophylaxis. --Advance care planning: +30 minutes I called patient's Ms. Deidre Daniel act [phone] and discussed in detail, patient's condition, tests and reports, consultants recommendation, , poor prognosis and advanced directives and goals of treatment, We also inquired the advanced directives, Ms. Silva informed that patient is a full CODE STATUS all needs to be done, to keep him alive, Full code at this point Patient is a full code Monitor patient and adjust the management as needed Plan of care reviewed with the patient and his nurse Home O2 evaluation prior to discharge Plan of care reviewed with patient and his nurse 04/29; patient received hemodialysis today, during the dialysis time Patient went to hypoxic respiratory failure, placed on Ventimask, currently saturating well 04/30; anemia, hemoglobin 6.6, type and cross, transfuse 1. Unit PRBC as needed Sepsis due to community-acquired pneumonia, on empiric Zithromax and Rocephin Follow cultures. Discussed with supervisor insulation Dr. Barrera. History Interval history: I seen and examined the patient at the bedside, patient's chart and medications reviewed Patient's hemoglobin in the lower range 6.6, recommend 1 unit PRBC transfusion during dialysis tomorrow. No external evidence of bleeding Patient feels better patient's is at the bedside Patient is confused at times Vital signs reviewed Hospitalist Physical - Constitutional Vitals: Temp Pulse Resp BP Pulse Ox 98.5 F 98 H 18 105/54 95 04/30/21 07:44 04/30/21 07:44 04/30/21 07:44 04/30/21 07:44 04/30/21 07:44 General appearance: Present: no acute distress, well-nourished - EENT Eyes: Present: PERRL, scleral icterus, miosis - Neck Neck: Present: supple, normal ROM - Respiratory Respiratory effort: normal Respiratory: bilateral: diminished, rales, negative: rhonchi, wheezing - Cardiovascular Rhythm: regular Heart Sounds: Present: S1 & S2 - Extremities Extremities: no ischemia, No edema - Abdominal General gastrointestinal: soft, non-tender, non-distended, normal bowel sounds - Integumentary Integumentary: Present: clear, warm - Psychiatric Psychiatric: appropriate mood/affect, cooperative - Neurologic Neurologic: CNII-XII intact, moves all extremities HEART Score - HEART Score Troponin: Troponin T 0.167 ng/mL (0.00-0.029) H* 04/29/21 10:29 Results - Labs CBC & Chem 7: 04/30/21 05:45 04/30/21 05:45 Labs: Laboratory Last Values WBC 16.7 K/mm3 (4.5-11.0) H 04/30/21 05:45 RBC 2.40 M/mm3 (3.65-5.03) L 04/30/21 05:45 Hgb 6.6 gm/dl (11.8-15.2) L 04/30/21 05:45 Hct 21.1 % (35.5-45.6) L 04/30/21 05:45 MCV 88 fl (84-94) 04/30/21 05:45 MCH 27 pg (28-32) L 04/30/21 05:45 MCHC 31 % (32-34) L 04/30/21 05:45 RDW 16.5 % (13.2-15.2) H 04/30/21 05:45 Plt Count 358 K/mm3 (140-440) 04/30/21 05:45 Hood % (Auto) Back Feeder Plywood Layup Line 04/30/21 05:45 Add Manual Diff Complete 04/30/21 05:45 Total Counted 100 04/30/21 05:45 Seg Neuts % (Manual) 73.0 % (40.0-70.0) H 04/30/21 05:45 Band Neutrophils % 0 % 04/30/21 05:45 Lymphocytes % (Manual) 8.0 % (13.4-35.0) L 04/30/21 05:45 Reactive Lymphs % (Man) 0 % 04/30/21 05:45 Monocytes % (Manual) 16.0 % (0.0-7.3) H 04/30/21 05:45 Eosinophils % (Manual) 1.0 % (0.0-4.3) 04/30/21 05:45 Basophils % (Manual) 1.0 % (0.0-1.8) 04/30/21 05:45 Metamyelocytes % 1.0 % 04/30/21 05:45 Myelocytes % 0 % 04/30/21 05:45 Promyelocytes % 0 % 04/30/21 05:45 Blast Cells % 0 % 04/30/21 05:45 Nucleated RBC % 2.0 % (0.0-0.9) H 04/30/21 05:45 Seg Neutrophils # Man 12.2 K/mm3 (1.8-7.7) H 04/30/21 05:45 Band Neutrophils # 0.0 K/mm3 04/30/21 05:45 Lymphocytes # (Manual) 1.3 K/mm3 (1.2-5.4) 04/30/21 05:45 Abs React Lymphs (Man) 0.0 K/mm3 04/30/21 05:45 Monocytes # (Manual) 2.7 K/mm3 (0.0-0.8) H 04/30/21 05:45 Eosinophils # (Manual) 0.2 K/mm3 (0.0-0.4) 04/30/21 05:45 Basophils # (Manual) 0.2 K/mm3 (0.0-0.1) H 04/30/21 05:45 Metamyelocytes # 0.2 K/mm3 04/30/21 05:45 Myelocytes # 0.0 K/mm3 04/30/21 05:45 Promyelocytes # 0.0 K/mm3 04/30/21 05:45 Blast Cells # 0.0 K/mm3 04/30/21 05:45 WBC Morphology Not Reportable 04/30/21 05:45 Hypersegmented Neuts Not Reportable 04/30/21 05:45 Hyposegmented Neuts Not Reportable 04/30/21 05:45 Hypogranular Neuts Not Reportable 04/30/21 05:45 Smudge Cells Not Reportable 04/30/21 05:45 Toxic Granulation 1+ 04/30/21 05:45 Toxic Vacuolation Not Reportable 04/30/21 05:45 Dohle Bodies Not Reportable 04/30/21 05:45 Pelger-Huet Anomaly Not Reportable 04/30/21 05:45 Brooke Rods Not Reportable 04/30/21 05:45 Platelet Estimate Consistent w auto 04/30/21 05:45 Clumped Platelets Not Reportable 04/30/21 05:45 Plt Clumps, EDTA Not Reportable 04/30/21 05:45 Large Platelets Few 04/30/21 05:45 Giant Platelets Not Reportable 04/30/21 05:45 Platelet Satelliting Not Reportable 04/30/21 05:45 Plt Morphology Comment Not Reportable 04/30/21 05:45 RBC Morphology Not Reportable 04/30/21 05:45 Dimorphic RBCs Not Reportable 04/30/21 05:45 Polychromasia Not Reportable 04/30/21 05:45 Hypochromasia Not Reportable 04/30/21 05:45 Poikilocytosis Not Reportable 04/30/21 05:45 Anisocytosis 1+ 04/30/21 05:45 Microcytosis Not Reportable 04/30/21 05:45 Macrocytosis Not Reportable 04/30/21 05:45 Spherocytes Not Reportable 04/30/21 05:45 Pappenheimer Bodies Not Reportable 04/30/21 05:45 Sickle Cells Not Reportable 04/30/21 05:45 Target Cells Not Reportable 04/30/21 05:45 Tear Drop Cells Not Reportable 04/30/21 05:45 Ovalocytes Not Reportable 04/30/21 05:45 Helmet Cells Not Reportable 04/30/21 05:45 [place]-Centrahoma Bodies Not Reportable 04/30/21 05:45 [place] Rings Not Reportable 04/30/21 05:45 [place] Cells Not Reportable 04/30/21 05:45 Bite Cells Not Reportable 04/30/21 05:45 Crenated Cell Not Reportable 04/30/21 05:45 Elliptocytes Not Reportable 04/30/21 05:45 Acanthocytes (Spur) Not Reportable 04/30/21 05:45 Rouleaux Not Reportable 04/30/21 05:45 Hemoglobin C Crystals Not Reportable 04/30/21 05:45 Schistocytes Not Reportable 04/30/21 05:45 Malaria parasites Not Reportable 04/30/21 05:45 Manfred Bodies Not Reportable 04/30/21 05:45 Hem Pathologist Commnt No 04/30/21 05:45 PT 14.3 Sec. (12.2-14.9) 04/29/21 03:08 INR 1.00 (0.87-1.13) 04/29/21 03:08 APTT 33.4 Sec. (24.2-36.6) 04/29/21 03:08 ABG pH 7.458 pH Units (7.350-7.450) H 04/29/21 17:05 ABG pCO2 34.0 mm Hg 04/29/21 17:05 ABG pO2 69.5 mm Hg (80.0-90.0) L 04/29/21 17:05 ABG HCO3 23.5 mmol/L (20.0-26.0) 04/29/21 17:05 ABG O2 Saturation 97.0 % (95.0-99.0) 04/29/21 17:05 ABG O2 Content 10.0 (0.0-44) 04/29/21 17:05 ABG Base Excess -0.2 mmol/L (-2.0-3.0) 04/29/21 17:05 ABG Hemoglobin 7.4 gm/dl (14.0-18.0) L 04/29/21 17:05 ABG Carboxyhemoglobin 1.5 % (0.0-5.0) 04/29/21 17:05 ABG Methemoglobin 0.5 % (0.0-1.5) 04/29/21 17:05 Oxyhemoglobin 95.1 % (95.0-99.0) 04/29/21 17:05 FiO2 21 % 04/29/21 17:05 Sodium 139 mmol/L (137-145) 04/30/21 05:45 Potassium 4.5 mmol/L (3.6-5.0) 04/30/21 05:45 Chloride 99.3 mmol/L (98-107) 04/30/21 05:45 Carbon Dioxide 22 mmol/L (22-30) 04/30/21 05:45 Anion Gap 22 mmol/L 04/30/21 05:45 BUN 54 mg/dL (9-20) H 04/30/21 05:45 Creatinine 8.8 mg/dL (0.8-1.3) H 04/30/21 05:45 Estimated GFR 7 ml/min 04/30/21 05:45 BUN/Creatinine Ratio 6 % 04/30/21 05:45 Glucose 80 mg/dL (75-100) 04/30/21 05:45 POC Glucose 72 mg/dL (70-105) 04/30/21 07:45 Lactic Acid 1.00 mmol/L (0.7-2.0) 04/29/21 03:08 Calcium 7.2 mg/dL (8.4-10.2) L 04/30/21 05:45 Total Bilirubin 0.20 mg/dL (0.1-1.2) 04/29/21 03:08 AST 26 units/L (5-40) 04/29/21 03:08 ALT 12 units/L (7-56) 04/29/21 03:08 Alkaline Phosphatase 121 units/L (35-129) 04/29/21 03:08 Total Creatine Kinase 101 units/L (55-170) 04/29/21 03:08 Troponin T 0.167 ng/mL (0.00-0.029) H* 04/29/21 10:29 Total Protein 6.3 g/dL (6.3-8.2) 04/29/21 03:08 Albumin 2.7 g/dL (3.9-5) L 04/29/21 03:08 Albumin/Globulin Ratio 0.8 % 04/29/21 03:08 Triglycerides 222 mg/dL (2-149) H 04/29/21 03:08 Cholesterol 186 mg/dL (50-199) 04/29/21 03:08 LDL Cholesterol Direct 82 mg/dL (50-130) 04/29/21 03:08 HDL Cholesterol 42 mg/dL (40-59) 04/29/21 03:08 Cholesterol/HDL Ratio 4.42 % 04/29/21 03:08 Hepatitis A IgM Ab Non-reactive (NonReactive) 04/29/21 10:29 Hep Bs Antigen Non-reactive (Negative) 04/29/21 10:29 Hep B Core IgM Ab Non-reactive (NonReactive) 04/29/21 10:29 Hepatitis C Antibody Non-reactive (NonReactive) 04/29/21 10:29 Microbiology: Microbiology 04/29/21 03:57 Peripheral/Venous Blood Culture - Preliminary Culture in Progress 04/29/21 03:08 Peripheral/Venous Blood Culture - Preliminary Culture in Progress Keys/IV: Voiding Method Indwelling Catheter Active Medications - Current Medications Current Medications: Generic Name Dose Route Start Last Admin Trade Name Freq PRN Reason Stop Dose Admin Acetaminophen 650 mg 04/29/21 05:19 Acetaminophen 325 Mg Tab PO Q4H PRN Pain MILD(1-3)/Fever >100.5/GARCIA Albuterol 2.5 mg 04/29/21 05:19 Albuterol 2.5 Mg/3 Ml Nebu IH Q3HRT PRN Shortness Of Breath Albuterol/Ipratropium 1 ampul 04/29/21 08:00 04/30/21 10:50 Ipratropium/Albuterol Sulfate 3 Ml Ampul.Neb IH 1 ampul Q6HRT JOSUE Administration Aspirin 325 mg 04/30/21 10:00 04/30/21 09:57 Aspirin Ec 325 Mg Tab PO 325 mg QDAY JOSUE Administration Atorvastatin Calcium 20 mg 04/29/21 22:00 04/29/21 22:00 Atorvastatin 20 Mg Tab PO 20 mg QHS JOSUE Administration Azithromycin 500 mg 04/30/21 10:00 04/30/21 09:57 Azithromycin 250 Mg Tab PO 500 mg QDAY JOSUE Administration Protocol Dextrose 0 ml 04/29/21 11:50 04/30/21 08:12 Dextrose 10% *Hypoglycemia IV 50 ml PRN PRN Administration Hypoglycemia Epoetin Cody-epbx 20,000 unit 04/29/21 08:16 04/29/21 11:42 Epoetin Cody-Epbx 20,000 Unit/1 Ml Vial SUB-Q 20,000 unit FLORA PRN Administration hemodialysis Famotidine 10 mg 04/29/21 10:00 04/30/21 09:57 Famotidine 10 Mg Tab PO 10 mg BID JOSUE Administration Heparin Sodium (Porcine) 5,000 unit 04/29/21 10:00 04/30/21 09:57 Heparin 5,000 Unit/1 Ml Vial SUB-Q 5,000 unit Q12HR JOSUE Administration Heparin Sodium (Porcine) 3,000 unit 04/29/21 08:16 04/29/21 11:41 Heparin 10,000 Units/10 Ml Vial IV 3,000 unit FLORA PRN Administration hemodialysis Hydromorphone HCl 0.5 mg 04/29/21 05:19 Hydromorphone 1 Mg/1 Ml Inj IV Q3H PRN Pain , Severe (7-10) Ceftriaxone Sodium 2 gm in 100 mls @ 200 mls/hr 04/30/21 06:00 04/30/21 05:49 Rocephin/Ns 2 Gm/100 Ml IV 200 mls/hr Q24H JOSUE Administration Protocol Sodium Chloride 100 mls @ 999 mls/hr 04/29/21 08:16 Nacl 0.9% IV FLORA PRN Hypotension Morphine Sulfate 2 mg 04/29/21 05:19 Morphine 2 Mg/1 Ml Inj IV Q4H PRN Pain, Moderate (4-6) Nitroglycerin 0.4 mg 04/29/21 05:21 Nitroglycerin 0.4 Mg Tab Subl SL Q5M PRN Chest Pain Ondansetron HCl 4 mg 04/29/21 05:19 Ondansetron 4 Mg/2 Ml Inj IV Q8H PRN Nausea And Vomiting Sodium Chloride 10 ml 04/29/21 10:00 04/30/21 09:57 Sodium Chloride 0.9% 10 Ml Flush Syringe IV 10 ml BID JOSUE Administration Sodium Chloride 10 ml 04/29/21 05:19 Sodium Chloride 0.9% 10 Ml Flush Syringe IV PRN PRN LINE FLUSH
--- NOTE | 2021-04-30 15:49 | Progress Note ---
Assessment and Plan 1. ESRD: Patient was recently started on HD during the prior admission at [facility]. He was last dialyzed on 04/24 at OSH. He refused scheduled HD on 04/27 at the rehab center. Admitted with volume overload and metabolic acidosis. Hemodialysis: 04/29. 2. FEN: Metabolic acidosis, s/p HD, monitor. Volume control, UF with HD as tolerated. Monitor lytes and volume status. 3. Acute hypoxic resp failure, POA: 2/2 volume overload / PNA. On NC O2 at the time of evaluation. Monitor. 4. PNA, POA: Abx to cover CAP. Covid-19 test pending. Follow cultures. 5. DM-2: Admitted with hypoglycemia. Monitor. 6. Normocytic Anemia, POA: Chronic. Epogen with HD. Monitor. 7. Hypertension: Volume control. Continue home BP meds. Monitor BP, controlled. 8. Sub-acute Encephalopathy: Work up for acute encephalopathy during recent admission at [facility]SH. Subjective: Patient was seen and examined at the bedside. at the bedside. Examination: General appearance: well-developed, appears stated age, no distress, on NC O2 HEENT: atraumatic, CHRISTIANO Neck: trachea midline Respiratory: diminished breath sounds bilaterally Heart: S1S2, regular, no murmur Abdomen: soft, bowel sounds heard, NT Integumentary: no obvious rash Neurologic: lethargic, not following any command Ext: no edema Hemodialysis access: R IJ tunnel catheter Subjective Date of service: 04/30/21 Objective - Vital Signs Vital signs: Vital Signs - 12hr 04/30/21 04/30/21 04/30/21 07:44 11:56 12:00 Temperature 98.5 F 99.1 F Pulse Rate 98 H 97 H Pulse Rate [ 96 H Radial] Respiratory 18 18 18 Rate Blood Pressure 105/54 99/52 O2 Sat by Pulse 95 96 95 Oximetry 04/30/21 13:00 Temperature Pulse Rate 98 H Pulse Rate [ Radial] Respiratory Rate Blood Pressure O2 Sat by Pulse Oximetry - Lab 04/30/21 05:45 04/30/21 05:45 Most recent lab results ABG pH 7.458 pH Units (7.350-7.450) H 04/29/21 17:05 ABG pCO2 34.0 mm Hg 04/29/21 17:05 ABG pO2 69.5 mm Hg (80.0-90.0) L 04/29/21 17:05 ABG HCO3 23.5 mmol/L (20.0-26.0) 04/29/21 17:05 ABG O2 Saturation 97.0 % (95.0-99.0) 04/29/21 17:05 Calcium 7.2 mg/dL (8.4-10.2) L 04/30/21 05:45 Medications & Allergies - Medications Allergies/Adverse Reactions: Allergies No Known Allergies Allergy (Verified 04/29/21 03:06) Home Medications: Home Medications Medication Instructions Recorded Confirmed Last Taken Type Hydrochlorothiazide 25 mg PO QDAY 04/29/21 04/29/21 Unknown History Iron 325 mg PO QDAY 04/29/21 04/29/21 Unknown History Lasix 80 mg PO BID 04/29/21 04/29/21 Unknown History Lipitor 20 mg PO HS 04/29/21 04/29/21 Unknown History Protonix 40 mg PO QDAY 04/29/21 04/29/21 Unknown History Sotalol 80 mg PO BID 04/29/21 04/29/21 Unknown History amLODIPine 10 mg PO QDAY 04/29/21 04/29/21 Unknown History cloNIDine 0.3 mg PO TID 04/29/21 04/29/21 Unknown History hydrALAZINE [Apresoline TAB] 100 mg PO TID 04/29/21 04/29/21 Unknown History Active Medications: Generic Name Dose Route Start Last Admin Trade Name Freq PRN Reason Stop Dose Admin Acetaminophen 650 mg 04/29/21 05:19 Acetaminophen 325 Mg Tab PO Q4H PRN Pain MILD(1-3)/Fever >100.5/GARCIA Albuterol 2.5 mg 04/29/21 05:19 Albuterol 2.5 Mg/3 Ml Nebu IH Q3HRT PRN Shortness Of Breath Albuterol/Ipratropium 1 ampul 04/29/21 08:00 04/30/21 10:50 Ipratropium/Albuterol Sulfate 3 Ml Ampul.Neb IH 1 ampul Q6HRT JOSUE Administration Aspirin 325 mg 04/30/21 10:00 04/30/21 09:57 Aspirin Ec 325 Mg Tab PO 325 mg QDAY JOSUE Administration Atorvastatin Calcium 20 mg 04/29/21 22:00 04/29/21 22:00 Atorvastatin 20 Mg Tab PO 20 mg QHS JOSUE Administration Azithromycin 500 mg 04/30/21 10:00 04/30/21 09:57 Azithromycin 250 Mg Tab PO 500 mg QDAY JOSUE Administration Protocol Dextrose 0 ml 04/29/21 11:50 04/30/21 08:12 Dextrose 10% *Hypoglycemia IV 50 ml PRN PRN Administration Hypoglycemia Epoetin Cody-epbx 20,000 unit 04/29/21 08:16 04/29/21 11:42 Epoetin Cody-Epbx 20,000 Unit/1 Ml Vial SUB-Q 20,000 unit FLORA PRN Administration hemodialysis Famotidine 10 mg 04/29/21 10:00 04/30/21 09:57 Famotidine 10 Mg Tab PO 10 mg BID JOSUE Administration Heparin Sodium (Porcine) 5,000 unit 04/29/21 10:00 04/30/21 09:57 Heparin 5,000 Unit/1 Ml Vial SUB-Q 5,000 unit Q12HR JOSUE Administration Heparin Sodium (Porcine) 3,000 unit 04/29/21 08:16 04/29/21 11:41 Heparin 10,000 Units/10 Ml Vial IV 3,000 unit FLORA PRN Administration hemodialysis Hydromorphone HCl 0.5 mg 04/29/21 05:19 Hydromorphone 1 Mg/1 Ml Inj IV Q3H PRN Pain , Severe (7-10) Ceftriaxone Sodium 2 gm in 100 mls @ 200 mls/hr 04/30/21 06:00 04/30/21 05:49 Rocephin/Ns 2 Gm/100 Ml IV 200 mls/hr Q24H JOSUE Administration Protocol Sodium Chloride 100 mls @ 999 mls/hr 04/29/21 08:16 Nacl 0.9% IV FLORA PRN Hypotension Morphine Sulfate 2 mg 04/29/21 05:19 Morphine 2 Mg/1 Ml Inj IV Q4H PRN Pain, Moderate (4-6) Nitroglycerin 0.4 mg 04/29/21 05:21 Nitroglycerin 0.4 Mg Tab Subl SL Q5M PRN Chest Pain Ondansetron HCl 4 mg 04/29/21 05:19 Ondansetron 4 Mg/2 Ml Inj IV Q8H PRN Nausea And Vomiting Sodium Chloride 10 ml 04/29/21 10:00 04/30/21 09:57 Sodium Chloride 0.9% 10 Ml Flush Syringe IV 10 ml BID JOSUE Administration Sodium Chloride 10 ml 04/29/21 05:19 Sodium Chloride 0.9% 10 Ml Flush Syringe IV PRN PRN LINE FLUSH
--- NOTE | 2021-04-30 16:41 | Progress Note ---
Assessment and Plan Assessment and plan: Sepsis due to community-acquired pneumonia: Current Visit: Yes Status: Acute Leukocytosis, fever, tachycardia, infiltrate on chest x-ray Follow blood cultures, continue empiric Rocephin and Zithromax Oxygen titrate O2 sats to more than 90% Blood pressures in the lower range; If no improvement, may consider transfer to ICU/IMCU for close observation To start pressors as needed Discussed with nephrology Dr. Barrera, patient was severely hypoxemic during dialysis requiring Ventimask. Patient is already receiving nebulizer treatments, work-up is consistent with possible pneumonia on chest x-ray Leukocytosis and low-grade fever. Patient is already on empiric antibiotics Rocephin and Zithromax --ESRD on hemodialysis Current Visit: Yes Status: Chronic Nephrology following Hemodialysis per schedule, monitor renal function Avoid nephrotoxin, renal dosing of medications --Anemia: Hemoglobin 6.6 Type and screen, transfuse 1 unit of PRBC at that day Hemodialysis tomorrow Closely monitor H&H and transfuse additional PRBC as needed - Pneumonia community-acquired Current Visit: Yes Status: Acute Oxygen via nasal cannula 3 L/min. Titrate O2 sats to more than 90% Empiric antibiotics Rocephin 2 g IV daily. Zithromax 500 mg IV daily. Blood culture and sputum culture. --Elevated troponin/non-ST elevation VT type II Current Visit: Yes Status: Acute Aspirin 325 mg p.o. daily. Lipitor 40 mg p.o. daily. Serial cardiac enzymes. Echocardiogram. Consult cardiology if needed --Hypertension Current Visit: Yes Status: Acute Hydralazine 10 mg IV every 6 hours as needed. We will monitor the blood pressure closely --Hypoglycemia Current Visit: Yes Status: Acute D50/D10 to treat hypoglycemia. Hold diabetic medications, closely monitor blood sugars, sliding scale coverage ADA diet and insulin --DVT prophylaxis--advance care planning Current Visit: Yes Status: Acute Heparin 5000 units subcu every 12 hours for DVT prophylaxis. Pepcid 20 mg p.o. twice daily for GI prophylaxis. --Advance care planning: +30 minutes I called patient's Ms. Deidre Daniel act [phone] and discussed in detail, patient's condition, tests and reports, consultants recommendation, , poor prognosis and advanced directives and goals of treatment, We also inquired the advanced directives, Ms. Silva informed that patient is a full CODE STATUS all needs to be done, to keep him alive, Full code at this point Patient is a full code Monitor patient and adjust the management as needed Plan of care reviewed with the patient and his nurse Home O2 evaluation prior to discharge Plan of care reviewed with patient and his nurse 04/29; patient received hemodialysis today, during the dialysis time Patient went to hypoxic respiratory failure, placed on Ventimask, currently saturating well 04/30; anemia, hemoglobin 6.6, type and cross, transfuse 1. Unit PRBC as needed Sepsis due to community-acquired pneumonia, on empiric Zithromax and Rocephin Follow cultures. Discussed with etcher aircraft Dr. Barrera. History Interval history: I have seen and examined the patient at the bedside Patient's chart and medications reviewed patient feels better, no new complaints Vital signs noted Hospitalist Physical - Constitutional Vitals: Temp Pulse Resp BP Pulse Ox 99.1 F 98 H 18 99/52 95 04/30/21 11:56 04/30/21 13:00 04/30/21 12:00 04/30/21 11:56 04/30/21 12:00 General appearance: Present: no acute distress, well-nourished - EENT Eyes: Present: PERRL, EOM intact - Neck Neck: Present: supple, normal ROM - Respiratory Respiratory effort: normal Respiratory: bilateral: diminished, rhonchi, negative: rales, wheezing - Cardiovascular Rhythm: regular Heart Sounds: Present: S1 & S2 - Extremities Extremities: no ischemia, pulses intact - Abdominal General gastrointestinal: soft, non-tender, non-distended, normal bowel sounds - Integumentary Integumentary: Present: clear, warm - Psychiatric Psychiatric: appropriate mood/affect, cooperative - Neurologic Neurologic: CNII-XII intact, moves all extremities HEART Score - HEART Score Troponin: Troponin T 0.167 ng/mL (0.00-0.029) H* 04/29/21 10:29 Results - Labs CBC & Chem 7: 05/01/21 05:08 05/01/21 05:08 Labs: Laboratory Last Values WBC 16.7 K/mm3 (4.5-11.0) H 04/30/21 05:45 RBC 2.40 M/mm3 (3.65-5.03) L 04/30/21 05:45 Hgb 6.6 gm/dl (11.8-15.2) L 04/30/21 05:45 Hct 21.1 % (35.5-45.6) L 04/30/21 05:45 MCV 88 fl (84-94) 04/30/21 05:45 MCH 27 pg (28-32) L 04/30/21 05:45 MCHC 31 % (32-34) L 04/30/21 05:45 RDW 16.5 % (13.2-15.2) H 04/30/21 05:45 Plt Count 358 K/mm3 (140-440) 04/30/21 05:45 Lane % (Auto) Powerbuilder 04/30/21 05:45 Add Manual Diff Complete 04/30/21 05:45 Total Counted 100 04/30/21 05:45 Seg Neuts % (Manual) 73.0 % (40.0-70.0) H 04/30/21 05:45 Band Neutrophils % 0 % 04/30/21 05:45 Lymphocytes % (Manual) 8.0 % (13.4-35.0) L 04/30/21 05:45 Reactive Lymphs % (Man) 0 % 04/30/21 05:45 Monocytes % (Manual) 16.0 % (0.0-7.3) H 04/30/21 05:45 Eosinophils % (Manual) 1.0 % (0.0-4.3) 04/30/21 05:45 Basophils % (Manual) 1.0 % (0.0-1.8) 04/30/21 05:45 Metamyelocytes % 1.0 % 04/30/21 05:45 Myelocytes % 0 % 04/30/21 05:45 Promyelocytes % 0 % 04/30/21 05:45 Blast Cells % 0 % 04/30/21 05:45 Nucleated RBC % 2.0 % (0.0-0.9) H 04/30/21 05:45 Seg Neutrophils # Man 12.2 K/mm3 (1.8-7.7) H 04/30/21 05:45 Band Neutrophils # 0.0 K/mm3 04/30/21 05:45 Lymphocytes # (Manual) 1.3 K/mm3 (1.2-5.4) 04/30/21 05:45 Abs React Lymphs (Man) 0.0 K/mm3 04/30/21 05:45 Monocytes # (Manual) 2.7 K/mm3 (0.0-0.8) H 04/30/21 05:45 Eosinophils # (Manual) 0.2 K/mm3 (0.0-0.4) 04/30/21 05:45 Basophils # (Manual) 0.2 K/mm3 (0.0-0.1) H 04/30/21 05:45 Metamyelocytes # 0.2 K/mm3 04/30/21 05:45 Myelocytes # 0.0 K/mm3 04/30/21 05:45 Promyelocytes # 0.0 K/mm3 04/30/21 05:45 Blast Cells # 0.0 K/mm3 04/30/21 05:45 WBC Morphology Not Reportable 04/30/21 05:45 Hypersegmented Neuts Not Reportable 04/30/21 05:45 Hyposegmented Neuts Not Reportable 04/30/21 05:45 Hypogranular Neuts Not Reportable 04/30/21 05:45 Smudge Cells Not Reportable 04/30/21 05:45 Toxic Granulation 1+ 04/30/21 05:45 Toxic Vacuolation Not Reportable 04/30/21 05:45 Dohle Bodies Not Reportable 04/30/21 05:45 Pelger-Huet Anomaly Not Reportable 04/30/21 05:45 Brooke Rods Not Reportable 04/30/21 05:45 Platelet Estimate Consistent w auto 04/30/21 05:45 Clumped Platelets Not Reportable 04/30/21 05:45 Plt Clumps, EDTA Not Reportable 04/30/21 05:45 Large Platelets Few 04/30/21 05:45 Giant Platelets Not Reportable 04/30/21 05:45 Platelet Satelliting Not Reportable 04/30/21 05:45 Plt Morphology Comment Not Reportable 04/30/21 05:45 RBC Morphology Not Reportable 04/30/21 05:45 Dimorphic RBCs Not Reportable 04/30/21 05:45 Polychromasia Not Reportable 04/30/21 05:45 Hypochromasia Not Reportable 04/30/21 05:45 Poikilocytosis Not Reportable 04/30/21 05:45 Anisocytosis 1+ 04/30/21 05:45 Microcytosis Not Reportable 04/30/21 05:45 Macrocytosis Not Reportable 04/30/21 05:45 Spherocytes Not Reportable 04/30/21 05:45 Pappenheimer Bodies Not Reportable 04/30/21 05:45 Sickle Cells Not Reportable 04/30/21 05:45 Target Cells Not Reportable 04/30/21 05:45 Tear Drop Cells Not Reportable 04/30/21 05:45 Ovalocytes Not Reportable 04/30/21 05:45 Helmet Cells Not Reportable 04/30/21 05:45 [place] Bodies Not Reportable 04/30/21 05:45 [place] Rings Not Reportable 04/30/21 05:45 [place] Cells Not Reportable 04/30/21 05:45 Bite Cells Not Reportable 04/30/21 05:45 Crenated Cell Not Reportable 04/30/21 05:45 Elliptocytes Not Reportable 04/30/21 05:45 Acanthocytes (Spur) Not Reportable 04/30/21 05:45 Rouleaux Not Reportable 04/30/21 05:45 Hemoglobin C Crystals Not Reportable 04/30/21 05:45 Schistocytes Not Reportable 04/30/21 05:45 Malaria parasites Not Reportable 04/30/21 05:45 [place]fred Bodies Not Reportable 04/30/21 05:45 Hem Pathologist Commnt No 04/30/21 05:45 PT 14.3 Sec. (12.2-14.9) 04/29/21 03:08 INR 1.00 (0.87-1.13) 04/29/21 03:08 APTT 33.4 Sec. (24.2-36.6) 04/29/21 03:08 ABG pH 7.458 pH Units (7.350-7.450) H 04/29/21 17:05 ABG pCO2 34.0 mm Hg 04/29/21 17:05 ABG pO2 69.5 mm Hg (80.0-90.0) L 04/29/21 17:05 ABG HCO3 23.5 mmol/L (20.0-26.0) 04/29/21 17:05 ABG O2 Saturation 97.0 % (95.0-99.0) 04/29/21 17:05 ABG O2 Content 10.0 (0.0-44) 04/29/21 17:05 ABG Base Excess -0.2 mmol/L (-2.0-3.0) 04/29/21 17:05 ABG Hemoglobin 7.4 gm/dl (14.0-18.0) L 04/29/21 17:05 ABG Carboxyhemoglobin 1.5 % (0.0-5.0) 04/29/21 17:05 ABG Methemoglobin 0.5 % (0.0-1.5) 04/29/21 17:05 Oxyhemoglobin 95.1 % (95.0-99.0) 04/29/21 17:05 FiO2 21 % 04/29/21 17:05 Sodium 139 mmol/L (137-145) 04/30/21 05:45 Potassium 4.5 mmol/L (3.6-5.0) 04/30/21 05:45 Chloride 99.3 mmol/L (98-107) 04/30/21 05:45 Carbon Dioxide 22 mmol/L (22-30) 04/30/21 05:45 Anion Gap 22 mmol/L 04/30/21 05:45 BUN 54 mg/dL (9-20) H 04/30/21 05:45 Creatinine 8.8 mg/dL (0.8-1.3) H 04/30/21 05:45 Estimated GFR 7 ml/min 04/30/21 05:45 BUN/Creatinine Ratio 6 % 04/30/21 05:45 Glucose 80 mg/dL (75-100) 04/30/21 05:45 POC Glucose 145 mg/dL (70-105) H 04/30/21 11:58 Lactic Acid 1.00 mmol/L (0.7-2.0) 04/29/21 03:08 Calcium 7.2 mg/dL (8.4-10.2) L 04/30/21 05:45 Total Bilirubin 0.20 mg/dL (0.1-1.2) 04/29/21 03:08 AST 26 units/L (5-40) 04/29/21 03:08 ALT 12 units/L (7-56) 04/29/21 03:08 Alkaline Phosphatase 121 units/L (35-129) 04/29/21 03:08 Total Creatine Kinase 101 units/L (55-170) 04/29/21 03:08 Troponin T 0.167 ng/mL (0.00-0.029) H* 04/29/21 10:29 Total Protein 6.3 g/dL (6.3-8.2) 04/29/21 03:08 Albumin 2.7 g/dL (3.9-5) L 04/29/21 03:08 Albumin/Globulin Ratio 0.8 % 04/29/21 03:08 Triglycerides 222 mg/dL (2-149) H 04/29/21 03:08 Cholesterol 186 mg/dL (50-199) 04/29/21 03:08 LDL Cholesterol Direct 82 mg/dL (50-130) 04/29/21 03:08 HDL Cholesterol 42 mg/dL (40-59) 04/29/21 03:08 Cholesterol/HDL Ratio 4.42 % 04/29/21 03:08 Hepatitis A IgM Ab Non-reactive (NonReactive) 04/29/21 10:29 Hep Bs Antigen Non-reactive (Negative) 04/29/21 10:29 Hep B Core IgM Ab Non-reactive (NonReactive) 04/29/21 10:29 Hepatitis C Antibody Non-reactive (NonReactive) 04/29/21 10:29 Blood Type B POSITIVE 04/30/21 12:30 Antibody Screen Negative 04/30/21 12:30 Crossmatch See Detail 04/30/21 12:30 Microbiology: Microbiology 04/29/21 03:57 Peripheral/Venous Blood Culture - Preliminary NO GROWTH AFTER 24 HOURS 04/29/21 03:08 Peripheral/Venous Blood Culture - Preliminary NO GROWTH AFTER 24 HOURS Keys/IV: Voiding Method Indwelling Catheter Active Medications - Current Medications Current Medications: Generic Name Dose Route Start Last Admin Trade Name Freq PRN Reason Stop Dose Admin Acetaminophen 650 mg 04/29/21 05:19 Acetaminophen 325 Mg Tab PO Q4H PRN Pain MILD(1-3)/Fever >100.5/GARCIA Albuterol 2.5 mg 04/29/21 05:19 Albuterol 2.5 Mg/3 Ml Nebu IH Q3HRT PRN Shortness Of Breath Albuterol/Ipratropium 1 ampul 04/29/21 08:00 04/30/21 15:50 Ipratropium/Albuterol Sulfate 3 Ml Ampul.Neb IH 1 ampul Q6HRT JOSUE Administration Aspirin 325 mg 04/30/21 10:00 04/30/21 09:57 Aspirin Ec 325 Mg Tab PO 325 mg QDAY JOSUE Administration Atorvastatin Calcium 20 mg 04/29/21 22:00 04/29/21 22:00 Atorvastatin 20 Mg Tab PO 20 mg QHS JOSUE Administration Azithromycin 500 mg 04/30/21 10:00 04/30/21 09:57 Azithromycin 250 Mg Tab PO 500 mg QDAY JOSUE Administration Protocol Dextrose 0 ml 04/29/21 11:50 04/30/21 08:12 Dextrose 10% *Hypoglycemia IV 50 ml PRN PRN Administration Hypoglycemia Epoetin Cody-epbx 20,000 unit 04/29/21 08:16 04/29/21 11:42 Epoetin Cody-Epbx 20,000 Unit/1 Ml Vial SUB-Q 20,000 unit FLORA PRN Administration hemodialysis Famotidine 10 mg 04/29/21 10:00 04/30/21 09:57 Famotidine 10 Mg Tab PO 10 mg BID JOSUE Administration Heparin Sodium (Porcine) 5,000 unit 04/29/21 10:00 04/30/21 09:57 Heparin 5,000 Unit/1 Ml Vial SUB-Q 5,000 unit Q12HR JOSUE Administration Heparin Sodium (Porcine) 3,000 unit 04/29/21 08:16 04/29/21 11:41 Heparin 10,000 Units/10 Ml Vial IV 3,000 unit FLORA PRN Administration hemodialysis Hydromorphone HCl 0.5 mg 04/29/21 05:19 Hydromorphone 1 Mg/1 Ml Inj IV Q3H PRN Pain , Severe (7-10) Ceftriaxone Sodium 2 gm in 100 mls @ 200 mls/hr 04/30/21 06:00 04/30/21 05:49 Rocephin/Ns 2 Gm/100 Ml IV 200 mls/hr Q24H JOSUE Administration Protocol Sodium Chloride 100 mls @ 999 mls/hr 04/29/21 08:16 Nacl 0.9% IV FLORA PRN Hypotension Morphine Sulfate 2 mg 04/29/21 05:19 Morphine 2 Mg/1 Ml Inj IV Q4H PRN Pain, Moderate (4-6) Nitroglycerin 0.4 mg 04/29/21 05:21 Nitroglycerin 0.4 Mg Tab Subl SL Q5M PRN Chest Pain Ondansetron HCl 4 mg 04/29/21 05:19 Ondansetron 4 Mg/2 Ml Inj IV Q8H PRN Nausea And Vomiting Sodium Chloride 10 ml 04/29/21 10:00 04/30/21 09:57 Sodium Chloride 0.9% 10 Ml Flush Syringe IV 10 ml BID JOSUE Administration Sodium Chloride 10 ml 04/29/21 05:19 Sodium Chloride 0.9% 10 Ml Flush Syringe IV PRN PRN LINE FLUSH
[2021-05-01] MEDS: IPRATROPIUM/ALBUTEROL SULFATE 3 ML AMPUL.NEB IH SCH ×4 (01:18→19:56)
[2021-05-01] MEDS: cefTRIAXone/NS 2 GM/100 ML 2 GM/100 ML BAG IV SCH (05:11)
[2021-05-01 06:00] LABS: Hematocrit 20.8 % (35.5-45.6); Hemoglobin 6.5 gm/dl (11.8-15.2); Mean Corpuscular HGB Conc 31 % (32-34); Mean Corpuscular Volume 89 fl (84-94); Platelet Count 350 K/mm3 (140-440); Red Blood Count 2.34 M/mm3 (3.65-5.03); Red Cell Distribution Width 18.5 % (13.2-15.2)
[2021-05-01 06:11] LABS: Calcium 7.1 mg/dL (8.4-10.2)
[2021-05-01 07:00] LABS: Anisocytosis 1+; Band Neutrophils # (Manual) 0.1 K/mm3; Basophils % (Manual) 0 % (0.0-1.8); Hypochromasia 1+; Large Platelets Few; Ovalocytes Few; Platelet Estimate Consistent w Auto; Total Cells Counted 100
--- NOTE | 2021-05-01 10:14 | Progress Note ---
Assessment and Plan 1. ESRD: Patient was recently started on HD during the prior admission at OSH. He was last dialyzed on 04/24 at OSH. He refused scheduled HD on 04/27 at the rehab center. Admitted with volume overload and metabolic acidosis. Hemodialysis: 04/29, 04/30. 2. FEN: Metabolic acidosis, s/p HD, monitor. Volume control, UF with HD as tolerated. Monitor lytes and volume status. 3. Acute hypoxic resp failure, POA: 2/2 volume overload / PNA. Supplemental O2 as needed. Monitor. 4. PNA, POA: Abx to cover CAP. Covid-19 test negative. Follow cultures. 5. DM-2: Admitted with hypoglycemia. Monitor. 6. Normocytic Anemia, POA: Chronic. Epogen with HD. Monitor. 7. Hypertension: Volume control. Continue home BP meds. Monitor BP, controlled. 8. ?Sub-acute Encephalopathy: Work up for acute encephalopathy during recent admission at OSH. Subjective: Patient was seen and examined at the bedside. Examination: General appearance: well-developed, appears stated age, no distress, on NC O2 HEENT: atraumatic, CHRISTIANO Neck: trachea midline Respiratory: diminished breath sounds bilaterally Heart: S1S2, regular, no murmur Abdomen: soft, bowel sounds heard, NT Integumentary: no obvious rash Neurologic: alert, confused, following command Ext: no edema Hemodialysis access: R IJ tunnel catheter Subjective Date of service: 05/01/21 Objective - Vital Signs Vital signs: Vital Signs - 12hr 04/30/21 04/30/21 05/01/21 23:23 23:29 00:00 Temperature 98.8 F Pulse Rate 89 85 Pulse Rate [ Throughout] Respiratory 17 18 Rate Respiratory Rate [ Throughout] Blood Pressure 116/64 O2 Sat by Pulse 96 92 Oximetry 05/01/21 05/01/21 05/01/21 01:13 03:37 04:00 Temperature 98.0 F Pulse Rate 85 80 Pulse Rate [ Throughout] Respiratory 18 Rate Respiratory Rate [ Throughout] Blood Pressure 113/64 O2 Sat by Pulse 97 96 Oximetry 05/01/21 05/01/21 05/01/21 07:39 08:45 09:21 Temperature 98.4 F Pulse Rate 86 Pulse Rate [ 90 Throughout] Respiratory 18 18 Rate Respiratory 18 Rate [ Throughout] Blood Pressure 132/72 O2 Sat by Pulse 96 96 Oximetry 05/01/21 09:22 Temperature Pulse Rate Pulse Rate [ Throughout] Respiratory Rate Respiratory Rate [ Throughout] Blood Pressure O2 Sat by Pulse 98 Oximetry - Lab 05/01/21 05:08 05/01/21 05:08 Most recent lab results ABG pH 7.458 pH Units (7.350-7.450) H 04/29/21 17:05 ABG pCO2 34.0 mm Hg 04/29/21 17:05 ABG pO2 69.5 mm Hg (80.0-90.0) L 04/29/21 17:05 ABG HCO3 23.5 mmol/L (20.0-26.0) 04/29/21 17:05 ABG O2 Saturation 97.0 % (95.0-99.0) 04/29/21 17:05 Calcium 7.1 mg/dL (8.4-10.2) L 05/01/21 05:08 Phosphorus 7.60 mg/dL (2.5-4.5) H 05/01/21 05:08 Magnesium 2.00 mg/dL (1.7-2.3) 05/01/21 05:08 Medications & Allergies - Medications Allergies/Adverse Reactions: Allergies No Known Allergies Allergy (Verified 04/29/21 03:06) Home Medications: Home Medications Medication Instructions Recorded Confirmed Last Taken Type Hydrochlorothiazide 25 mg PO QDAY 04/29/21 04/29/21 Unknown History Iron 325 mg PO QDAY 04/29/21 04/29/21 Unknown History Lasix 80 mg PO BID 04/29/21 04/29/21 Unknown History Lipitor 20 mg PO HS 04/29/21 04/29/21 Unknown History Protonix 40 mg PO QDAY 04/29/21 04/29/21 Unknown History Sotalol 80 mg PO BID 04/29/21 04/29/21 Unknown History amLODIPine 10 mg PO QDAY 04/29/21 04/29/21 Unknown History cloNIDine 0.3 mg PO TID 04/29/21 04/29/21 Unknown History hydrALAZINE [Apresoline TAB] 100 mg PO TID 04/29/21 04/29/21 Unknown History Active Medications: Generic Name Dose Route Start Last Admin Trade Name Freq PRN Reason Stop Dose Admin Acetaminophen 650 mg 04/29/21 05:19 Acetaminophen 325 Mg Tab PO Q4H PRN Pain MILD(1-3)/Fever >100.5/GARCIA Albuterol 2.5 mg 04/29/21 05:19 Albuterol 2.5 Mg/3 Ml Nebu IH Q3HRT PRN Shortness Of Breath Albuterol/Ipratropium 1 ampul 05/01/21 08:00 05/01/21 09:21 Ipratropium/Albuterol Sulfate 3 Ml Ampul.Neb IH 1 ampul TIDRT JOSUE Administration Aspirin 325 mg 04/30/21 10:00 04/30/21 09:57 Aspirin Ec 325 Mg Tab PO 325 mg QDAY JOSUE Administration Atorvastatin Calcium 20 mg 04/29/21 22:00 04/30/21 21:51 Atorvastatin 20 Mg Tab PO 20 mg QHS JOSUE Administration Azithromycin 500 mg 04/30/21 10:00 04/30/21 09:57 Azithromycin 250 Mg Tab PO 05/03/21 10:01 500 mg QDAY JOSUE Administration Protocol Dextrose 0 ml 04/29/21 11:50 04/30/21 08:12 Dextrose 10% *Hypoglycemia IV 50 ml PRN PRN Administration Hypoglycemia Epoetin Cody-epbx 20,000 unit 04/29/21 08:16 04/29/21 11:42 Epoetin Cody-Epbx 20,000 Unit/1 Ml Vial SUB-Q 20,000 unit FLORA PRN Administration hemodialysis Famotidine 10 mg 04/29/21 10:00 04/30/21 21:51 Famotidine 10 Mg Tab PO 10 mg BID JOSUE Administration Heparin Sodium (Porcine) 5,000 unit 04/29/21 10:00 04/30/21 21:52 Heparin 5,000 Unit/1 Ml Vial SUB-Q 5,000 unit Q12HR JOSUE Administration Heparin Sodium (Porcine) 3,000 unit 04/29/21 08:16 04/29/21 11:41 Heparin 10,000 Units/10 Ml Vial IV 3,000 unit FLORA PRN Administration hemodialysis Hydromorphone HCl 0.5 mg 04/29/21 05:19 Hydromorphone 1 Mg/1 Ml Inj IV Q3H PRN Pain , Severe (7-10) Ceftriaxone Sodium 2 gm in 100 mls @ 200 mls/hr 04/30/21 06:00 05/01/21 05:11 Rocephin/Ns 2 Gm/100 Ml IV 05/03/21 06:29 200 mls/hr Q24H JOSUE Administration Protocol Sodium Chloride 100 mls @ 999 mls/hr 04/29/21 08:16 Nacl 0.9% IV FLORA PRN Hypotension Morphine Sulfate 2 mg 04/29/21 05:19 Morphine 2 Mg/1 Ml Inj IV Q4H PRN Pain, Moderate (4-6) Nitroglycerin 0.4 mg 04/29/21 05:21 Nitroglycerin 0.4 Mg Tab Subl SL Q5M PRN Chest Pain Ondansetron HCl 4 mg 04/29/21 05:19 Ondansetron 4 Mg/2 Ml Inj IV Q8H PRN Nausea And Vomiting Sodium Chloride 10 ml 04/29/21 10:00 05/01/21 05:10 Sodium Chloride 0.9% 10 Ml Flush Syringe IV 10 ml BID JOSUE Administration Sodium Chloride 10 ml 04/29/21 05:19 Sodium Chloride 0.9% 10 Ml Flush Syringe IV PRN PRN LINE FLUSH
[2021-05-01] MEDS ORDERED: SODIUM CHLORIDE 0.9% 250ML 250 ML ONE (10:51)
--- NOTE | 2021-05-01 11:01 | Electrocardiograph Report ---
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
--- NOTE | 2021-05-01 11:07 | Electrocardiograph Report ---
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 Electronically Signed On 05-01-2021 11:06:54 EDT by Maverick Duarte
[2021-05-01] MEDS: HEPARIN 10,000 UNITS/10 ML VIAL IV PRN (12:51)
[2021-05-01] MEDS: EPOETIN ALFA-EPBX 20,000 UNIT/1 ML VIAL SUB-Q PRN (12:52)
[2021-05-01] MEDS: FAMOTIDINE 10 MG TAB PO SCH ×3 (15:25→21:49)
[2021-05-01] MEDS: ASPIRIN EC 325 MG TAB PO SCH (15:25)
[2021-05-01] MEDS: HEPARIN 5,000 UNIT/1 ML VIAL SUB-Q SCH ×3 (15:25→21:49)
[2021-05-01] MEDS: AZITHROMYCIN 250 MG TAB PO SCH (15:25)
--- NOTE | 2021-05-01 20:19 | Progress Note ---
Assessment and Plan Assessment and plan: Sepsis due to community-acquired pneumonia: Current Visit: Yes Status: Acute Leukocytosis, fever, tachycardia, infiltrate on chest x-ray Follow blood cultures, continue empiric Rocephin and Zithromax Oxygen titrate O2 sats to more than 90% Blood pressures in the lower range; If no improvement, may consider transfer to ICU/IMCU for close observation To start pressors as needed Discussed with nephrology Dr. Barrera, patient was severely hypoxemic during dialysis requiring Ventimask. Patient is already receiving nebulizer treatments, work-up is consistent with possible pneumonia on chest x-ray Leukocytosis and low-grade fever. Patient is already on empiric antibiotics Rocephin and Zithromax --ESRD on hemodialysis Current Visit: Yes Status: Chronic Nephrology following Hemodialysis per schedule, monitor renal function Avoid nephrotoxin, renal dosing of medications --Anemia: Hemoglobin 6.6 Type and screen, transfuse 1 unit of PRBC at that day Hemodialysis tomorrow Closely monitor H&H and transfuse additional PRBC as needed - Pneumonia community-acquired Current Visit: Yes Status: Acute Oxygen via nasal cannula 3 L/min. Titrate O2 sats to more than 90% Empiric antibiotics Rocephin 2 g IV daily. Zithromax 500 mg IV daily. Blood culture and sputum culture. --Elevated troponin/non-ST elevation SC type II Current Visit: Yes Status: Acute Aspirin 325 mg p.o. daily. Lipitor 40 mg p.o. daily. Serial cardiac enzymes. Echocardiogram. Consult cardiology if needed --Hypertension Current Visit: Yes Status: Acute Hydralazine 10 mg IV every 6 hours as needed. We will monitor the blood pressure closely --Hypoglycemia Current Visit: Yes Status: Acute D50/D10 to treat hypoglycemia. Hold diabetic medications, closely monitor blood sugars, sliding scale coverage ADA diet and insulin --DVT prophylaxis--advance care planning Current Visit: Yes Status: Acute Heparin 5000 units subcu every 12 hours for DVT prophylaxis. Pepcid 20 mg p.o. twice daily for GI prophylaxis. --Advance care planning: +30 minutes I called patient's Ms. Deidre Daniel act [phone] and discussed in detail, patient's condition, tests and reports, consultants recommendation, , poor prognosis and advanced directives and goals of treatment, We also inquired the advanced directives, Ms. Silva informed that patient is a full CODE STATUS all needs to be done, to keep him alive, Full code at this point Patient is a full code Monitor patient and adjust the management as needed Plan of care reviewed with the patient and his nurse Home O2 evaluation prior to discharge Plan of care reviewed with patient and his nurse 04/29; patient received hemodialysis today, during the dialysis time Patient went to hypoxic respiratory failure, placed on Ventimask, currently saturating well 04/30; anemia, hemoglobin 6.6, type and cross, transfuse 1. Unit PRBC as needed Sepsis due to community-acquired pneumonia, on empiric Zithromax and Rocephin Follow cultures. Discussed with auto seat cover installer Dr. Barrera. History Interval history: I have seen and examined the patient at the bedside Patient's chart and medications reviewed No new events reported by the nursing Hospitalist Physical - Constitutional Vitals: Temp Pulse Resp BP Pulse Ox 100.6 F H 94 H 20 105/59 98 05/01/21 16:25 05/01/21 19:56 05/01/21 19:56 05/01/21 16:25 05/01/21 19:55 General appearance: Present: no acute distress, well-nourished - EENT Eyes: Present: PERRL, EOM intact - Neck Neck: Present: supple, normal ROM - Respiratory Respiratory effort: normal Respiratory: bilateral: diminished, negative: CTA, rales, rhonchi, wheezing - Cardiovascular Rhythm: regular Heart Sounds: Present: S1 & S2 - Extremities Extremities: no ischemia Extremity abnormal: edema (Base edema) - Abdominal General gastrointestinal: soft, non-tender, non-distended, normal bowel sounds - Integumentary Integumentary: Present: clear, warm - Psychiatric Psychiatric: appropriate mood/affect, cooperative - Neurologic Neurologic: moves all extremities HEART Score - HEART Score Troponin: Troponin T 0.167 ng/mL (0.00-0.029) H* 04/29/21 10:29 Results - Labs CBC & Chem 7: 05/01/21 05:08 05/01/21 05:08 Labs: Laboratory Last Values WBC 13.5 K/mm3 (4.5-11.0) H 05/01/21 05:08 RBC 2.34 M/mm3 (3.65-5.03) L 05/01/21 05:08 Hgb 6.5 gm/dl (11.8-15.2) L 05/01/21 05:08 Hct 20.8 % (35.5-45.6) L 05/01/21 05:08 MCV 89 fl (84-94) 05/01/21 05:08 MCH 28 pg (28-32) 05/01/21 05:08 MCHC 31 % (32-34) L 05/01/21 05:08 RDW 18.5 % (13.2-15.2) H 05/01/21 05:08 Plt Count 350 K/mm3 (140-440) 05/01/21 05:08 [place] % (Auto) [employer] Operator 05/01/21 05:08 Add Manual Diff Complete 05/01/21 05:08 Total Counted 100 05/01/21 05:08 Seg Neuts % (Manual) 79.0 % (40.0-70.0) H 05/01/21 05:08 Band Neutrophils % 1.0 % 05/01/21 05:08 Lymphocytes % (Manual) 7.0 % (13.4-35.0) L 05/01/21 05:08 Reactive Lymphs % (Man) 0 % 05/01/21 05:08 Monocytes % (Manual) 12.0 % (0.0-7.3) H 05/01/21 05:08 Eosinophils % (Manual) 1.0 % (0.0-4.3) 05/01/21 05:08 Basophils % (Manual) 0 % (0.0-1.8) 05/01/21 05:08 Metamyelocytes % 0 % 05/01/21 05:08 Myelocytes % 0 % 05/01/21 05:08 Promyelocytes % 0 % 05/01/21 05:08 Blast Cells % 0 % 05/01/21 05:08 Nucleated RBC % 2.0 % (0.0-0.9) H 05/01/21 05:08 Seg Neutrophils # Man 10.7 K/mm3 (1.8-7.7) H 05/01/21 05:08 Band Neutrophils # 0.1 K/mm3 05/01/21 05:08 Lymphocytes # (Manual) 0.9 K/mm3 (1.2-5.4) L 05/01/21 05:08 Abs React Lymphs (Man) 0.0 K/mm3 05/01/21 05:08 Monocytes # (Manual) 1.6 K/mm3 (0.0-0.8) H 05/01/21 05:08 Eosinophils # (Manual) 0.1 K/mm3 (0.0-0.4) 05/01/21 05:08 Basophils # (Manual) 0.0 K/mm3 (0.0-0.1) 05/01/21 05:08 Metamyelocytes # 0.0 K/mm3 05/01/21 05:08 Myelocytes # 0.0 K/mm3 05/01/21 05:08 Promyelocytes # 0.0 K/mm3 05/01/21 05:08 Blast Cells # 0.0 K/mm3 05/01/21 05:08 WBC Morphology Not Reportable 05/01/21 05:08 Hypersegmented Neuts Not Reportable 05/01/21 05:08 Hyposegmented Neuts Not Reportable 05/01/21 05:08 Hypogranular Neuts Not Reportable 05/01/21 05:08 Smudge Cells Not Reportable 05/01/21 05:08 Toxic Granulation Not Reportable 05/01/21 05:08 Toxic Vacuolation Not Reportable 05/01/21 05:08 Dohle Bodies Not Reportable 05/01/21 05:08 Pelger-Huet Anomaly Not Reportable 05/01/21 05:08 Brooke Rods Not Reportable 05/01/21 05:08 Platelet Estimate Consistent w auto 05/01/21 05:08 Clumped Platelets Not Reportable 05/01/21 05:08 Plt Clumps, EDTA Not Reportable 05/01/21 05:08 Large Platelets Few 05/01/21 05:08 Giant Platelets Not Reportable 05/01/21 05:08 Platelet Satelliting Not Reportable 05/01/21 05:08 Plt Morphology Comment Not Reportable 05/01/21 05:08 RBC Morphology Not Reportable 05/01/21 05:08 Dimorphic RBCs Not Reportable 05/01/21 05:08 Polychromasia 1+ 05/01/21 05:08 Hypochromasia 1+ 05/01/21 05:08 Poikilocytosis Not Reportable 05/01/21 05:08 Anisocytosis 1+ 05/01/21 05:08 Microcytosis Not Reportable 05/01/21 05:08 Macrocytosis Not Reportable 05/01/21 05:08 Spherocytes Not Reportable 05/01/21 05:08 Pappenheimer Bodies Not Reportable 05/01/21 05:08 Sickle Cells Not Reportable 05/01/21 05:08 Target Cells Not Reportable 05/01/21 05:08 Tear Drop Cells Not Reportable 05/01/21 05:08 Ovalocytes Few 05/01/21 05:08 Helmet Cells Not Reportable 05/01/21 05:08 [place] Tracts Bodies Not Reportable 05/01/21 05:08 [place] Rings Not Reportable 05/01/21 05:08 [place] Cells Not Reportable 05/01/21 05:08 Bite Cells Not Reportable 05/01/21 05:08 Crenated Cell Not Reportable 05/01/21 05:08 Elliptocytes Not Reportable 05/01/21 05:08 Acanthocytes (Spur) Not Reportable 05/01/21 05:08 Rouleaux Not Reportable 05/01/21 05:08 Hemoglobin C Crystals Not Reportable 05/01/21 05:08 Schistocytes Not Reportable 05/01/21 05:08 Malaria parasites Not Reportable 05/01/21 05:08 [place] Bodies Not Reportable 05/01/21 05:08 Hem Pathologist Commnt No 05/01/21 05:08 PT 14.3 Sec. (12.2-14.9) 04/29/21 03:08 INR 1.00 (0.87-1.13) 04/29/21 03:08 APTT 33.4 Sec. (24.2-36.6) 04/29/21 03:08 ABG pH 7.458 pH Units (7.350-7.450) H 04/29/21 17:05 ABG pCO2 34.0 mm Hg 04/29/21 17:05 ABG pO2 69.5 mm Hg (80.0-90.0) L 04/29/21 17:05 ABG HCO3 23.5 mmol/L (20.0-26.0) 04/29/21 17:05 ABG O2 Saturation 97.0 % (95.0-99.0) 04/29/21 17:05 ABG O2 Content 10.0 (0.0-44) 04/29/21 17:05 ABG Base Excess -0.2 mmol/L (-2.0-3.0) 04/29/21 17:05 ABG Hemoglobin 7.4 gm/dl (14.0-18.0) L 04/29/21 17:05 ABG Carboxyhemoglobin 1.5 % (0.0-5.0) 04/29/21 17:05 ABG Methemoglobin 0.5 % (0.0-1.5) 04/29/21 17:05 Oxyhemoglobin 95.1 % (95.0-99.0) 04/29/21 17:05 FiO2 21 % 04/29/21 17:05 Sodium 140 mmol/L (137-145) 05/01/21 05:08 Potassium 4.5 mmol/L (3.6-5.0) 05/01/21 05:08 Chloride 99.9 mmol/L (98-107) 05/01/21 05:08 Carbon Dioxide 21 mmol/L (22-30) L 05/01/21 05:08 Anion Gap 24 mmol/L 05/01/21 05:08 BUN 64 mg/dL (9-20) H 05/01/21 05:08 Creatinine 10.6 mg/dL (0.8-1.3) H 05/01/21 05:08 Estimated GFR 6 ml/min 05/01/21 05:08 BUN/Creatinine Ratio 6 % 05/01/21 05:08 Glucose 263 mg/dL (75-100) H 05/01/21 05:08 POC Glucose 211 mg/dL (70-105) H 05/01/21 16:39 Lactic Acid 1.00 mmol/L (0.7-2.0) 04/29/21 03:08 Calcium 7.1 mg/dL (8.4-10.2) L 05/01/21 05:08 Phosphorus 7.60 mg/dL (2.5-4.5) H 05/01/21 05:08 Magnesium 2.00 mg/dL (1.7-2.3) 05/01/21 05:08 Total Bilirubin 0.20 mg/dL (0.1-1.2) 04/29/21 03:08 AST 26 units/L (5-40) 04/29/21 03:08 ALT 12 units/L (7-56) 04/29/21 03:08 Alkaline Phosphatase 121 units/L (35-129) 04/29/21 03:08 Total Creatine Kinase 101 units/L (55-170) 04/29/21 03:08 Troponin T 0.167 ng/mL (0.00-0.029) H* 04/29/21 10:29 Total Protein 6.3 g/dL (6.3-8.2) 04/29/21 03:08 Albumin 2.7 g/dL (3.9-5) L 04/29/21 03:08 Albumin/Globulin Ratio 0.8 % 04/29/21 03:08 Triglycerides 222 mg/dL (2-149) H 04/29/21 03:08 Cholesterol 186 mg/dL (50-199) 04/29/21 03:08 LDL Cholesterol Direct 82 mg/dL (50-130) 04/29/21 03:08 HDL Cholesterol 42 mg/dL (40-59) 04/29/21 03:08 Cholesterol/HDL Ratio 4.42 % 04/29/21 03:08 Coronavirus (PCR) Negative (Negative) 04/30/21 09:45 Hepatitis A IgM Ab Non-reactive (NonReactive) 04/29/21 10:29 Hep Bs Antigen Non-reactive (Negative) 04/29/21 10:29 Hep B Core IgM Ab Non-reactive (NonReactive) 04/29/21 10:29 Hepatitis C Antibody Non-reactive (NonReactive) 04/29/21 10:29 Blood Type B POSITIVE 04/30/21 12:30 Antibody Screen Negative 04/30/21 12:30 Crossmatch See Detail 04/30/21 12:30 Microbiology: Microbiology 04/29/21 03:08 Peripheral/Venous Blood Culture - Preliminary NO GROWTH AFTER 48 HOURS 04/29/21 03:57 Peripheral/Venous Blood Culture - Preliminary NO GROWTH AFTER 48 HOURS Keys/IV: Voiding Method Indwelling Catheter Active Medications - Current Medications Current Medications: Generic Name Dose Route Start Last Admin Trade Name Freq PRN Reason Stop Dose Admin Acetaminophen 650 mg 04/29/21 05:19 Acetaminophen 325 Mg Tab PO Q4H PRN Pain MILD(1-3)/Fever >100.5/GARCIA Albuterol 2.5 mg 04/29/21 05:19 Albuterol 2.5 Mg/3 Ml Nebu IH Q3HRT PRN Shortness Of Breath Albuterol/Ipratropium 1 ampul 05/01/21 08:00 05/01/21 19:56 Ipratropium/Albuterol Sulfate 3 Ml Ampul.Neb IH Not Given TIDRT JOSUE Aspirin 325 mg 04/30/21 10:00 05/01/21 15:25 Aspirin Ec 325 Mg Tab PO 325 mg QDAY JOSUE Administration Atorvastatin Calcium 20 mg 04/29/21 22:00 04/30/21 21:51 Atorvastatin 20 Mg Tab PO 20 mg QHS JOSUE Administration Azithromycin 500 mg 04/30/21 10:00 05/01/21 15:25 Azithromycin 250 Mg Tab PO 05/03/21 10:01 500 mg QDAY JOSUE Administration Protocol Dextrose 0 ml 04/29/21 11:50 04/30/21 08:12 Dextrose 10% *Hypoglycemia IV 50 ml PRN PRN Administration Hypoglycemia Epoetin Cody-epbx 20,000 unit 04/29/21 08:16 05/01/21 12:52 Epoetin Cody-Epbx 20,000 Unit/1 Ml Vial SUB-Q 20,000 unit FLORA PRN Administration hemodialysis Famotidine 10 mg 04/29/21 10:00 05/01/21 15:25 Famotidine 10 Mg Tab PO 10 mg BID JOSUE Administration Heparin Sodium (Porcine) 5,000 unit 04/29/21 10:00 05/01/21 15:25 Heparin 5,000 Unit/1 Ml Vial SUB-Q 5,000 unit Q12HR JOSUE Administration Heparin Sodium (Porcine) 3,000 unit 04/29/21 08:16 05/01/21 12:51 Heparin 10,000 Units/10 Ml Vial IV 3,000 unit FLORA PRN Administration hemodialysis Hydromorphone HCl 0.5 mg 04/29/21 05:19 Hydromorphone 1 Mg/1 Ml Inj IV Q3H PRN Pain , Severe (7-10) Ceftriaxone Sodium 2 gm in 100 mls @ 200 mls/hr 04/30/21 06:00 05/01/21 05:11 Rocephin/Ns 2 Gm/100 Ml IV 05/03/21 06:29 200 mls/hr Q24H JOSUE Administration Protocol Sodium Chloride 100 mls @ 999 mls/hr 04/29/21 08:16 Nacl 0.9% IV FLORA PRN Hypotension Morphine Sulfate 2 mg 04/29/21 05:19 Morphine 2 Mg/1 Ml Inj IV Q4H PRN Pain, Moderate (4-6) Nitroglycerin 0.4 mg 04/29/21 05:21 Nitroglycerin 0.4 Mg Tab Subl SL Q5M PRN Chest Pain Ondansetron HCl 4 mg 04/29/21 05:19 Ondansetron 4 Mg/2 Ml Inj IV Q8H PRN Nausea And Vomiting Sodium Chloride 10 ml 04/29/21 10:00 05/01/21 15:27 Sodium Chloride 0.9% 10 Ml Flush Syringe IV 10 ml BID JOSUE Administration Sodium Chloride 10 ml 04/29/21 05:19 Sodium Chloride 0.9% 10 Ml Flush Syringe IV PRN PRN LINE FLUSH
[2021-05-01] MEDS: INSULIN LISPRO 100 UNIT/ML SUB-Q SCH (23:29)
[2021-05-02] MEDS: cefTRIAXone/NS 2 GM/100 ML 2 GM/100 ML BAG IV SCH (05:08)
--- NOTE | 2021-05-02 08:43 | Progress Note ---
Assessment and Plan 1. ESRD: Patient was recently started on HD during the prior admission at OSH. He was last dialyzed on 04/24 at OSH. He refused scheduled HD on 04/27 at the rehab center. Admitted with volume overload and metabolic acidosis. Hemodialysis: 04/29, 04/30. 2. FEN: Metabolic acidosis, s/p HD, monitor. Volume control, UF with HD as tolerated. Monitor lytes and volume status. 3. Acute hypoxic resp failure, POA: 2/2 volume overload / PNA. Supplemental O2 as needed. Monitor. 4. PNA, POA: Abx to cover CAP. Covid-19 test negative. Follow cultures. 5. DM-2: Admitted with hypoglycemia. Monitor. 6. Normocytic Anemia, POA: Chronic. Epogen with HD. Monitor. 7. Hypertension: Volume control. Continue home BP meds. Monitor BP, controlled. 8. ?Sub-acute Encephalopathy: Work up for acute encephalopathy during recent admission at OSH. Subjective: Patient was seen and examined at the bedside. Examination: General appearance: well-developed, appears stated age, no distress, on NC O2 HEENT: atraumatic, CHRISTIANO Neck: trachea midline Respiratory: diminished breath sounds bilaterally Heart: S1S2, regular, no murmur Abdomen: soft, bowel sounds heard, NT Integumentary: no obvious rash Neurologic: alert, confused, following command Ext: no edema Hemodialysis access: R IJ tunnel catheter Subjective Date of service: 05/02/21 Objective - Vital Signs Vital signs: Vital Signs - 12hr 05/01/21 05/01/21 05/02/21 23:32 23:50 03:02 Temperature 98.9 F Pulse Rate 48 L 94 H Respiratory 18 Rate Blood Pressure 130/63 O2 Sat by Pulse 98 97 Oximetry 05/02/21 04:47 Temperature 98.5 F Pulse Rate 83 Respiratory 18 Rate Blood Pressure 115/50 O2 Sat by Pulse 98 Oximetry - Lab 05/01/21 05:08 05/01/21 05:08 Most recent lab results ABG pH 7.458 pH Units (7.350-7.450) H 04/29/21 17:05 ABG pCO2 34.0 mm Hg 04/29/21 17:05 ABG pO2 69.5 mm Hg (80.0-90.0) L 04/29/21 17:05 ABG HCO3 23.5 mmol/L (20.0-26.0) 04/29/21 17:05 ABG O2 Saturation 97.0 % (95.0-99.0) 04/29/21 17:05 Calcium 7.1 mg/dL (8.4-10.2) L 05/01/21 05:08 Phosphorus 7.60 mg/dL (2.5-4.5) H 05/01/21 05:08 Magnesium 2.00 mg/dL (1.7-2.3) 05/01/21 05:08 Medications & Allergies - Medications Allergies/Adverse Reactions: Allergies No Known Allergies Allergy (Verified 04/29/21 03:06) Home Medications: Home Medications Medication Instructions Recorded Confirmed Last Taken Type Hydrochlorothiazide 25 mg PO QDAY 04/29/21 04/29/21 Unknown History Iron 325 mg PO QDAY 04/29/21 04/29/21 Unknown History Lasix 80 mg PO BID 04/29/21 04/29/21 Unknown History Lipitor 20 mg PO HS 04/29/21 04/29/21 Unknown History Protonix 40 mg PO QDAY 04/29/21 04/29/21 Unknown History Sotalol 80 mg PO BID 04/29/21 04/29/21 Unknown History amLODIPine 10 mg PO QDAY 04/29/21 04/29/21 Unknown History cloNIDine 0.3 mg PO TID 04/29/21 04/29/21 Unknown History hydrALAZINE [Apresoline TAB] 100 mg PO TID 04/29/21 04/29/21 Unknown History Active Medications: Generic Name Dose Route Start Last Admin Trade Name Lizzy PRN Reason Stop Dose Admin Acetaminophen 650 mg 04/29/21 05:19 Acetaminophen 325 Mg Tab PO Q4H PRN Pain MILD(1-3)/Fever >100.5/GARCIA Albuterol 2.5 mg 04/29/21 05:19 Albuterol 2.5 Mg/3 Ml Nebu IH Q3HRT PRN Shortness Of Breath Albuterol/Ipratropium 1 ampul 05/01/21 08:00 05/01/21 19:56 Ipratropium/Albuterol Sulfate 3 Ml Ampul.Neb IH Not Given TIDRT JOSUE Aspirin 325 mg 04/30/21 10:00 05/01/21 15:25 Aspirin Ec 325 Mg Tab PO 325 mg QDAY JOSUE Administration Atorvastatin Calcium 20 mg 04/29/21 22:00 05/01/21 21:47 Atorvastatin 20 Mg Tab PO Not Given QHS JOSUE Azithromycin 500 mg 04/30/21 10:00 05/01/21 15:25 Azithromycin 250 Mg Tab PO 05/03/21 10:01 500 mg QDAY JOSUE Administration Protocol Calcium Acetate 1,334 mg 05/02/21 08:00 Calcium Acetate 667 Mg Cap PO TIDWM [facility] Dextrose 0 ml 04/29/21 11:50 04/30/21 08:12 Dextrose 10% *Hypoglycemia IV 50 ml PRN PRN Administration Hypoglycemia Epoetin Cody-epbx 20,000 unit 04/29/21 08:16 05/01/21 12:52 Epoetin Cody-Epbx 20,000 Unit/1 Ml Vial SUB-Q 20,000 unit FLORA PRN Administration hemodialysis Famotidine 10 mg 04/29/21 10:00 05/01/21 21:49 Famotidine 10 Mg Tab PO Not Given BID [facility] Heparin Sodium (Porcine) 5,000 unit 04/29/21 10:00 05/01/21 21:49 Heparin 5,000 Unit/1 Ml Vial SUB-Q Not Given Q12HR [facility] Heparin Sodium (Porcine) 3,000 unit 04/29/21 08:16 05/01/21 12:51 Heparin 10,000 Units/10 Ml Vial IV 3,000 unit FLORA PRN Administration hemodialysis Hydromorphone HCl 0.5 mg 04/29/21 05:19 Hydromorphone 1 Mg/1 Ml Inj IV Q3H PRN Pain , Severe (7-10) Ceftriaxone Sodium 2 gm in 100 mls @ 200 mls/hr 04/30/21 06:00 05/02/21 05:08 Rocephin/Ns 2 Gm/100 Ml IV 05/03/21 06:29 200 mls/hr Q24H JOSUE Administration Protocol Sodium Chloride 100 mls @ 999 mls/hr 04/29/21 08:16 Nacl 0.9% IV FLORA PRN Hypotension Insulin Human Lispro 0 unit 05/01/21 23:30 05/01/21 23:29 Insulin Lispro 100 Unit/Ml SUB-Q 6 unit ACHS JOSUE Administration Protocol Morphine Sulfate 2 mg 04/29/21 05:19 Morphine 2 Mg/1 Ml Inj IV Q4H PRN Pain, Moderate (4-6) Nitroglycerin 0.4 mg 04/29/21 05:21 Nitroglycerin 0.4 Mg Tab Subl SL Q5M PRN Chest Pain Ondansetron HCl 4 mg 04/29/21 05:19 Ondansetron 4 Mg/2 Ml Inj IV Q8H PRN Nausea And Vomiting Sodium Chloride 10 ml 04/29/21 10:00 05/01/21 21:40 Sodium Chloride 0.9% 10 Ml Flush Syringe IV 10 ml BID JOSUE Administration Sodium Chloride 10 ml 04/29/21 05:19 Sodium Chloride 0.9% 10 Ml Flush Syringe IV PRN PRN LINE FLUSH
[2021-05-02] MEDS: IPRATROPIUM/ALBUTEROL SULFATE 3 ML AMPUL.NEB IH SCH ×2 (09:16→13:56)
[2021-05-02] MEDS: AZITHROMYCIN 250 MG TAB PO SCH (10:37)
[2021-05-02] MEDS: FAMOTIDINE 10 MG TAB PO SCH (10:37)
[2021-05-02] MEDS: ASPIRIN EC 325 MG TAB PO SCH (10:38)
[2021-05-02] MEDS: CALCIUM ACETATE 667 MG CAP PO SCH ×2 (10:38→16:03)
[2021-05-02] MEDS: INSULIN LISPRO 100 UNIT/ML SUB-Q SCH ×3 (10:40→16:07)
[2021-05-02] MEDS: HEPARIN 5,000 UNIT/1 ML VIAL SUB-Q SCH (10:42)
[2021-05-02 12:02] VITALS: BP 117/58
--- NOTE | 2021-05-02 15:19 | Discharge Summary ---
Providers - Providers Date of Admission: 04/29/21 05:19 Attending physician: YG CHAUDHARI 04/29/21 Consult to Cardiac Rehabilitation [CONS] Routine Reason For Exam: Phase I 04/29/21 04:51 Consult to Physician [CONS] Routine Comment: Consulting Provider: BRIANNA EBTANCOURT Physician Instructions: Reason For Exam: esrd 04/29/21 16:20 Physical Therapy Evaluation and Treat [CONS] Routine Comment: Reason For Exam: Encephalopathy /unsteady gait/evaluate, DC needs 04/30/21 18:11 Occupational Therapy Evaluate and Treat [CONS] Routine Comment: Reason For Exam: Eval & Treat Primary care physician: JESSICA MANZO MD Hospitalization Condition: Stable Pertinent studies: Chest x-ray Echocardiogram LVEF 55 to 60% right right Hemodialysis per schedule; Hospital course: Sepsis due to community-acquired pneumonia: Current Visit: Yes Status: Acute Leukocytosis, fever, tachycardia, infiltrate on chest x-ray Follow blood cultures, continue empiric Rocephin and Zithromax Oxygen titrate O2 sats to more than 90% Blood pressures in the lower range; If no improvement, may consider transfer to ICU/IMCU for close observation To start pressors as needed Discussed with nephrology Dr. Betancourt, patient was severely hypoxemic during dialysis requiring Ventimask. Patient is already receiving nebulizer treatments, work-up is consistent with possible pneumonia on chest x-ray Leukocytosis and low-grade fever. Patient is already on empiric antibiotics Rocephin and Zithromax --ESRD on hemodialysis Current Visit: Yes Status: Chronic Nephrology following Hemodialysis per schedule, monitor renal function Avoid nephrotoxin, renal dosing of medications --Anemia: Hemoglobin 6.6 Type and screen, transfuse 1 unit of PRBC at that day Hemodialysis tomorrow Closely monitor H&H and transfuse additional PRBC as needed - Pneumonia community-acquired Current Visit: Yes Status: Acute Oxygen via nasal cannula 3 L/min. Titrate O2 sats to more than 90% Empiric antibiotics Rocephin 2 g IV daily. Zithromax 500 mg IV daily. Blood culture and sputum culture. --Elevated troponin/non-ST elevation MT type II Current Visit: Yes Status: Acute Aspirin 325 mg p.o. daily. Lipitor 40 mg p.o. daily. Serial cardiac enzymes. Echocardiogram. Consult cardiology if needed --Hypertension Current Visit: Yes Status: Acute Hydralazine 10 mg IV every 6 hours as needed. We will monitor the blood pressure closely --Hypoglycemia Current Visit: Yes Status: Acute D50/D10 to treat hypoglycemia. Hold diabetic medications, closely monitor blood sugars, sliding scale coverage ADA diet and insulin --DVT prophylaxis--advance care planning Current Visit: Yes Status: Acute Heparin 5000 units subcu every 12 hours for DVT prophylaxis. Pepcid 20 mg p.o. twice daily for GI prophylaxis. --Advance care planning: +30 minutes I called patient's Ms. Deidre Daniel act [phone] and discussed in detail, patient's condition, tests and reports, consultants recommendation, , poor prognosis and advanced directives and goals of treatment, We also inquired the advanced directives, Ms. Silva informed that patient is a full CODE STATUS all needs to be done, to keep him alive, Full code at this point Disposition: 01 HOME / SELF CARE / HOMELESS Final Discharge Diagnosis (Prints w/discharge instructions): Sepsis due to community-acquired pneumonia. End-stage renal disease on hemodialysis. Community-acquired pneumonia. Hypertension. Hypoglycemia resolved Time spent for discharge: 35 min Core Measure Documentation - Palliative Care Palliative Care/ Comfort Measures: Not Applicable - Core Measures Any of the following diagnoses?: none Exam - Constitutional Vitals: Temp Pulse Resp BP Pulse Ox 98.6 F 94 H 20 117/58 93 05/02/21 12:01 05/02/21 13:56 05/02/21 13:56 05/02/21 12:01 05/02/21 12:01 General appearance: Present: no acute distress, well-nourished - EENT Eyes: Present: PERRL, EOM intact - Neck Neck: Present: supple, normal ROM - Respiratory Respiratory effort: normal Respiratory: bilateral: diminished, rhonchi, negative: rales, wheezing - Cardiovascular Rhythm: regular Heart Sounds: Present: S1 & S2 - Extremities Extremities: no ischemia, No edema - Abdominal General gastrointestinal: Present: soft, non-tender, non-distended, normal bowel sounds - Integumentary Integumentary: Present: clear, warm - Musculoskeletal Musculoskeletal: strength equal bilaterally - Psychiatric Psychiatric: appropriate mood/affect, cooperative - Neurologic Neurologic: CNII-XII intact, moves all extremities Plan Activity: advance as tolerated, fall precautions Diet: renal, other (Cardiac diet) Additional Instructions: If you have worsening symptoms contact MD or go to the nearest emergency room. Advised fall precautions, aspiration precautions. Follow renal, hemodialysis per schedule. Advised to comply with medications, diet, hemodialysis, and follow-up visits per schedule. Resume your insulin as before. Avoid hypoglycemia/avoid low blood sugars Follow up with: JESSICA MANZO MD [Primary Care Provider] - 7 Days BRIANNA BETANCOURT MD [Staff Physician] - 7 Days Prescriptions: Famotidine [Pepcid] 10 mg PO BID #60 tablet
== END 2021-05-02 17:28 | disposition home health service (06) | DRG 871 ==
LOC: ED 02:41 → 3A 05:19 → 4A 05:37
PROVIDERS: ADMIT Hospitalist; ATTEND Internal Medicine
PROC: 4A033R1 Measurement of Arterial Saturation, Peripheral, Percutaneous Approach (ICD-10-PCS; 2021-04-29)
PROC: 5A1D70Z Performance of Urinary Filtration, Intermittent, Less than 6 Hours Per Day (ICD-10-PCS; 2021-04-29)
PROC: 30243N1 Transfusion of Nonautologous Red Blood Cells into Central Vein, Percutaneous Approach (ICD-10-PCS; principal; 2021-05-01)
PROC: 5A1D70Z Performance of Urinary Filtration, Intermittent, Less than 6 Hours Per Day (ICD-10-PCS; 2021-05-01)
DX: A41.9 Sepsis, unspecified organism (principal); N18.6 End stage renal disease; I21.A1 Myocardial infarction type 2; J96.01 Acute respiratory failure with hypoxia; G92.8 Other toxic encephalopathy; J69.0 Pneumonitis due to inhalation of food and vomit; E87.4 Mixed disorder of acid-base balance; I12.0 Hypertensive chronic kidney disease with stage 5 chronic kidney disease or end stage renal disease; N17.9 Acute kidney failure, unspecified; Z20.822 Contact with and (suspected) exposure to COVID-19; Z99.2 Dependence on renal dialysis; D64.9 Anemia, unspecified; E11.22 Type 2 diabetes mellitus with diabetic chronic kidney disease; E11.649 Type 2 diabetes mellitus with hypoglycemia without coma; Z82.49 Family history of ischemic heart disease and other diseases of the circulatory system; Z86.16 Personal history of COVID-19
CPT/HCPCS: 36415; 36600; 71045; 80048; 80053; 80061; 80074; 82140; 82550; 82803; 82947; 82962; 83735; 84100; 84484; 85007; 85025; 85610; 85730; 86850; 86900; 86901; 86920; 87040; 87086; 93005; 93306; 94640; 94760; G0378; J3490; Q0162; Q9967; C8929; J0456; J0610; J0696; J0885; J1644; J1815; J7030; J7050; P9016; U0003